=== PATIENT | male | born 1945 | race Caucasian/White ===

== ENCOUNTER 2022-12-26 10:06 | Outpatient (CLI) | payer MEDICARE, SELFPAY ==
--- NOTE | 2022-12-26 10:51 | ECG_ITS ---
Measurements Intervals [place] Rate: 75 P: 29 KS: 244 QRS: 18 QRSD: 99 T: 6 QT: 369 QTc: 413 Interpretive Statements SINUS RHYTHM WITH FIRST DEGREE AV BLOCK COMPARED TO ECG 01/27/2019 10:44:03 NO SIGNIFICANT CHANGES Electronically Signed On 12-26-2022 16:26:02 CDT by Meredith Roberson M.D.
[2022-12-26 11:19] LABS: Basophils Absolute Auto 0.1 K/mm3 (0.0-0.1); Basophils Percent Auto 0.9 % (0.2-1.2); Eosinophils Absolute Auto 0.4 K/mm3 (0-0.3); Eosinophils Percent Auto 5.2 % (0-4.4); Hematocrit 43.7 % (42.0-52.0); Hemoglobin 14.7 g/dL (14.0-18.0); Immature Granulocyte Absolute 0.06 K/mm3 (0.00-0.031); Immature Granulocyte Percent A 0.8 % (0-0.5); Lymphocytes Absolute Auto 3.15 K/mm3 (0.9-3.2); Lymphocytes Percent Auto 40.8 % (18.3-44.2); Mean Corpuscular HGB Conc 33.6 g/dl (32-36); Mean Corpuscular Volume 92.2 fl (80-100); Mean Platelet Volume 10.2 fl (7.4-10.4); Monocytes Absolute Auto 0.8 K/mm3 (0.1-0.6); Monocytes Percent Auto 10.9 % (2.6-8.5); Neutrophils Absolute Auto 3.2 K/mm3 (1.3-6.7); Neutrophils Percent Auto 41.4 % (45.5-73.1); Platelet Count Result 231 k/mm3 (150-375); Red Blood Count 4.74 M/mm3 (4.6-6.20); Red Cell Distribution Width 13.7 % (11.5-14.5); White Blood Count 7.7 K/mm3 (4.5-10.0)
[2022-12-26 11:35] LABS: Albumin Level 4.6 g/dL (3.5-5.1); Estimated Glomerular Filt Rate > 60; Glucose 104 mg/dL (65-110)
[2022-12-26 11:38] LABS: Urine Cotinine NEGATIVE
[2022-12-26 12:08] LABS: Hemoglobin A1C 5.4 % (<5.7)
== END 2022-12-26 10:07 | disposition home or self-care (01) ==
LOC: ANHSURGERY 10:11
PROVIDERS: PCP Internal Medicine; Visit Provider Orthopaedic Surgery
DX: M17.11 Unilateral primary osteoarthritis, right knee (principal); Z01.818 Encounter for other preprocedural examination
CPT/HCPCS: 80307; 82040; 82565; 82947; 83036; 85025; 86850; 86900; 86901; 87081; 93005

== ENCOUNTER 2023-01-04 01:46 | Day surgery (SDC) | payer MEDICARE, SELFPAY ==
--- NOTE | 2022-12-26 09:41 | PC.NURSE ---
PRE-OP INSTRUCTIONS, PLEASE READ CAREFULLY Report to the Outpatient Waiting Room, entrance under the green pavilion located off [facility], at time _1000_ on date _01/04/23_. Planned Procedure Time: _1200_. PACK A SMALL OVERNIGHT BAG AND LEAVE IN THE CAR ALONG WITH YOUR WALKER Time changes happen often and if your time is changed the preop area will call you the afternoon before. - You and your visitor will be asked to self-screen and do not enter if you have any COVID symptoms. - A mask is optional within the hospital at this time. -VISITING HOURS 8AM-8PM Patients may have clear liquids (water, carbonated beverages, clear teas, apple juice) until 3 hours prior to surgery (0900 AM) with a maximum of 20 ounces. - No food from midnight until time of surgery Take the following medications with a SIP of water the morning of surgery: _HYDRALAZINE, METOPROLOL_ DO NOT STOP ANY OF YOUR OTHER PRESCRIPTION MEDICATIONS PRIOR TO SURGERY ?EXCEPT THE FOLLOWING Medications to discontinue per ANESTHESIA - _ALL VITAMINS AND SUPPLEMENTS, Date to take last dose 12/31/22_ Please no make-up, nail khmer, hairspray, perfume, deodorant, or body powder the day of surgery. No jewelry (including any body piercings) or valuables the day of surgery, leave them at home. Please take a shower or bath the night before, or the morning of, surgery with an antibacterial soap. Wear comfortable, loose fitting clothing. - Jewelry must be removed prior to entering the operating room. Rings and piercings that are not removed may be cut off. - The hospital will not accept responsibility for valuables. - Please leave all valuables, including medications, at home the day of surgery. If you are going home after surgery, a licensed miniature train driver must drive you home. - NO public transportation without another adult if you receive anesthesia. - We recommend that an adult stay with you for 24 hours following discharge. - We also recommend that you do not drive, make important decision, drink alcoholic beverages, or take any drugs that were not prescribed by your health care provider for at least 24 hours after your discharge time. Follow any additional instructions given to you from DR. CLINTON. If you or anyone in your household have experienced Covid symptoms in the past week, please notify your surgeon or the nurse liaison at the phone number below for possible testing. Instructions given to _PATIENT_and asked if any additional questions and then verbalized understanding. Patient advised to call surgeon office or pre surgery nurse liaison [phone] if any additional questions.
[2022-12-26 10:22] VITALS: BP 140/90; PULSE 76; RESP 20; TEMP 36.6; O2SAT 98; BMI 40.1
--- NOTE | 2022-12-26 10:54 | PC.NURSE ---
PT HERE FOR PRE-OP TESTING BMI 40.1, SPOKE WITH ESTHER (NURSE LIAISON) STATES CAN GO AHEAD WITH SURGERY- EXPLAINED TO PT BMI NEEDS TO BE BELOW 40 AND THAT HE WILL BE WEIGHED DOS AND BETWEEN NOW AND DOS TO EAT CLEAN AND STAY AWAY FROM SWEETS/HEAVY EATING AND TO EXERCISE MORE - UNDERSTANDING VOICED.
--- NOTE | 2022-12-29 12:53 | PM.IMHP ---
H&P: HPI History of Present Illness Date/Time: 12/29/22 12:53 Chief Complaint: the patient is a 77-year-old male who sees Dr. Larsen regarding his right knee. The patient has a chronic ongoing history of pain localized to the right knee this is due to advanced primary osteoarthritis. The patient has trouble squatting kneeling going up and down stairs cannot stand or walk for long periods. He has aching pain that limits what he can do he has startup pain rest pain and night pain despite conservative measures including cortisone therapy and anti-inflammatories his symptoms continue. Previous x-rays show advanced primary osteoarthritis in both knees. At this point the patient has discussed further treatment options in detail with Dr. Larsen he would now like to proceed with a right total knee arthroplasty. Review of Systems Review of Systems: Ten point review of systems otherwise negative [facility] Social History Social History Years smoked: 5 Smoking status: Former smoker Tobacco type: cigarettes Second hand tobacco smoke exposure: No Smoking end date: 09/17/70 Additional smoking assessment comments: PT DENIES ALL FORMS OF TOBACCO USE Alcohol intake: current Drinks per week: 4 Substance use: never Substance use type: does not use Living arrangements: with friend(s) Additional living arrangements comments: LIVES WITH SIGNIFICANT OTHER Spiritual care concerns: No Meds Home Medications and Allergies Home Medications Medication Instructions Recorded Confirmed Type Larginine 500 mg QAM 12/26/22 History amlodipine 5 mg tablet 5 mg HS 12/26/22 12/26/22 History ascorbic acid (vitamin C) 1,000 mg 1 g PO QAM 12/26/22 12/26/22 History tablet (Vitamin C) aspirin 81 mg tablet,delayed 81 mg PO QAM 12/26/22 12/26/22 History release atorvastatin 10 mg tablet 10 mg HS 12/26/22 12/26/22 History celecoxib 200 mg capsule 200 mg QAM 12/26/22 12/26/22 History cholecalciferol (vitamin D3) 25 25 mcg PO QAM 12/26/22 12/26/22 History mcg (1,000 unit) capsule coenzyme Q10 100 mg capsule 100 mg PO QAM 12/26/22 12/26/22 History (CoQ-10) ferrous sulfate 27 mg iron tablet 27 mg PO QAM 12/26/22 12/26/22 History hydralazine 25 mg tablet 50 mg BID 12/26/22 12/26/22 History metoprolol tartrate 25 mg tablet 25 mg BID 12/26/22 12/26/22 History ckwarkztukwl-cyr-vlygx acid-vit 1 tablet PO QAM 12/26/22 12/26/22 History K-lycop 400 mcg-20 mcg-370 mcg tablet (Men's 50 Plus Multivitamin) nifedipine 60 mg tablet,extended 60 mg PO HS 12/26/22 12/26/22 History release vitamin B complex 1 cap PO QAM 12/26/22 12/26/22 History vitamin E 400 unit tablet 400 unit QA 12/26/22 12/26/22 History Allergies Allergy/AdvReac Type Severity Reaction Status Date / Time No Known Allergies Allergy Unverified 12/26/22 10:24 Exam Narrative: on exam the patient is noted be 6 ft tall 285 lb with a BMI 38.7. Patient is noted be a well-developed moderately obese male no acute distress alert oriented x3. Normal mood and affect. Hearing and vision intact. Respiratory is good no distress. Pulse regular rate rhythm. Abdomen benign. Extremities show the patient's right knee to be painful with manipulation and range of motion he has mild varus deformity tenderness on the medial joint line with subpatellar crepitation mild effusion swelling knee joint is otherwise stable strength is 5 5. Range of motion is 5-110 degrees. Walks an antalgic gait because of bilateral knee pain neurovascular is intact skin is intact central nervous system within normal limits. Assessment and Plan Assessment and plan (1) Primary osteoarthritis of right knee: Code(s): M17.11 - Unilateral primary osteoarthritis, right knee Status: Acute Plan by previous x-ray and exam the patient is noted to have advanced primary osteoarthritis right knee joint. The patient has discussed risk
[2023-01-04] VITALS (12 sets, daily range): BP systolic 109–145; BP diastolic 60–85; PULSE 70–87; RESP 12–18; TEMP 36.2–37.8; O2SAT 95–100
--- NOTE | ~2023-01-04 | XR_ITS ---
EXAMINATION: [id number] DATE: 01/04/2023 14:38 CDT INDICATION: Right total knee arthroplasty TECHNIQUE: 2 views right knee FINDINGS: There is a right total knee arthroplasty in expected position. Subcutaneous gas with fluid and air in the joint and overlying skin mesha are consistent with recent surgery. No evidence of p eriprosthetic fracture. IMPRESSION: 1. Recent right total knee arthroplasty. Reviewed, dictated and finalized at location A.
[2023-01-04] MEDS: LACTATED RINGERS 1,000 ML 30 ML IV CONT ×2 (10:45→14:06)
[2023-01-04] MEDS: TRANEXAMIC ACID 1,000MG/ISO100 1,000 MG/100 ML BAG 200 MG IVPB (10:45)
[2023-01-04] MEDS: ACETAMINOPHEN 500 MG TABLET 1000 MG PO (10:45)
--- NOTE | 2023-01-04 10:47 | WPDANESEPPF ---
Anes - Initial Pre Proc Eval Procedure: Operation Date: 01/04/23 12:00 Proposed Procedures p Right Total Knee Arthroplasty - Fred Larsen MD Date/Time: 01/04/23 10:47 Surgeon: Fred Larsen MD Pre Op Diagnosis: O.A. Right Knee Patient Data Age: 77 Gender: M Height: 1.8 m Weight: 130.5 kg Last Vital Signs Temp 36.6 C 12/26/22 10:22 Pulse 76 12/26/22 10:22 Resp 20 12/26/22 10:22 BP 140/90 12/26/22 10:22 Pulse Ox 98 12/26/22 10:22 O2 Del Method Room Air 12/26/22 10:22 Allergies Allergy/AdvReac Type Severity Reaction Status Date / Time No Known Allergies Allergy Unverified 01/04/23 10:50 Home Medications Medication Instructions Recorded Confirmed Type Larginine 500 mg QAM 12/26/22 History amlodipine 5 mg tablet 5 mg HS 12/26/22 01/04/23 History ascorbic acid (vitamin C) 1,000 mg 1 g PO QAM 12/26/22 12/26/22 History tablet (Vitamin C) aspirin 81 mg tablet,delayed 81 mg PO QAM 12/26/22 12/26/22 History release atorvastatin 10 mg tablet 10 mg HS 12/26/22 01/04/23 History celecoxib 200 mg capsule 200 mg QAM 12/26/22 12/26/22 History cholecalciferol (vitamin D3) 25 25 mcg PO QAM 12/26/22 12/26/22 History mcg (1,000 unit) capsule coenzyme Q10 100 mg capsule 100 mg PO QAM 12/26/22 12/26/22 History (CoQ-10) ferrous sulfate 27 mg iron tablet 27 mg PO QAM 12/26/22 12/26/22 History hydralazine 25 mg tablet 50 mg BID 12/26/22 01/04/23 History metoprolol tartrate 25 mg tablet 25 mg BID 12/26/22 01/04/23 History isqutdewcabs-fpc-yxbbs acid-vit 1 tablet PO QAM 12/26/22 12/26/22 History K-lycop 400 mcg-20 mcg-370 mcg tablet (Men's 50 Plus Multivitamin) nifedipine 60 mg tablet,extended 60 mg PO HS 12/26/22 01/04/23 History release vitamin B complex 1 cap PO QAM 12/26/22 12/26/22 History vitamin E 400 unit tablet 400 unit QAM 12/26/22 12/26/22 History Patient hx anesthesia problems: none Family hx anesthesia problems: none Results Review: All pre-operative results and documents have been reviewed as part of the pre-operative evaluation. [facility] Past Medical History Medical History (Updated 01/04/23 @ 10:48 by Carl Palma DO) Anemia Hard of hearing Hyperlipidemia Hypertension Social History Social History Years smoked: 5 Smoking status: Former smoker Tobacco type: cigarettes Second hand tobacco smoke exposure: No Smoking end date: 09/17/70 Additional smoking assessment comments: PT DENIES ALL FORMS OF TOBACCO USE Alcohol intake: current Drinks per week: 4 Substance use: never Substance use type: does not use Living arrangements: with friend(s) Additional living arrangements comments: LIVES WITH SIGNIFICANT OTHER Spiritual care concerns: No Anes - Eval Final PreProcedure Day of Procedure 01/04/23 10:47 Patient weight: morbidly obese Heart: regular rate and rhythm Lungs: clear to auscultation Airway: Mallampati scale class II Neurological: alert and oriented Last oral intake: >/= 8 hours ASA classification: III Emergent: no Anesthetic plan: proceed Anesthesia type and monitoring: general LMA and standard monitoring Results Review: All pre-operative results and documents have been reviewed as part of the pre-operative evaluation. Informed Consent: The patient's anesthetic plan and its attendant risks and benefits were discussed with the patient/family/POA. Questions were solicited and answers provided to the satisfaction of the patient/family/POA.
--- NOTE | 2023-01-04 10:48 | WPDANESPNB ---
Anes - Peripheral Nerve Block Date/Time: 01/04/23 10:48 I have discussed with the patient/family/POA the placement of a peripheral nerve block for post-operative pain management, including associated risks, benefits, complications, and side effects. Alternative methods of post-operative analgesia were detailed. Questions were solicited and answers provided to the satisfaction of the patient/family/POA. Time-Out: A pre-procedural Time-Out was completed immediately before starting the procedure and confirmed: Patient Identification, Site, Procedure, Patient Position and the Availability of Requisite Equipment. Clinical Indications: Acute post-operative pain management requested by the operative surgeon. Nerve Block Insertion Note Anes-nerve block: adductor canal right Patient position: supine Skin prep: chlorhexidine Needle: 22 gauge, stimulating, insulated echogenic needle. Needle length: 80 mm Technique: ultrasound Injectate: bupivacaine 0.5% with epi 5 mcg/ml (30cc - no epi) Observations: tolerated well Complications: none Procedure start time:: 1144 Procedure end time:: 114
--- NOTE | 2023-01-04 11:36 | WPDHPUPDATE1 ---
History and Physical Update Update Date/Time: 01/04/23 11:36 History and Physical has been reviewed, including an updated exam of the patient. There are NO changes in the patient's condition. Risks, benefits, and alternatives have been discussed and questions answered. Patient agrees to proceed with procedure.
[2023-01-04] MEDS: ceFAZolin 3 GM/D5W 100 ML 100 ML IVPB (12:00)
--- NOTE | 2023-01-04 13:30 | P.OP_ITS ---
Procedure Note - Detailed Date of Procedure 01/04/23 Pre-op Diagnosis O.A. Right Knee Post-op Diagnosis Same Procedure Performed Right total knee arthroplasty Surgeon Fred Larsen MD Environmental Compliance Specialist Hayden Rasheed Anesthesia General Description of Procedure The patient was brought to the operating room #7. General anesthetic was administered. Placed on the operating table and sterilely prepped and draped in usual manner. A longitudinal incision was made. Tourniquet inflated to 300 mmHg for a total of 41 minutes. Dissection carried down to the fascia. Medial parapatellar incision was made and the patella subluxated laterally. Patella cut from 28 to 18 mm and sized for a 37 mm button. The tibia cut perpendicular to the long axis and femur cut in 5 degrees of valgus, a 72.5 femur trialed. 79 tibia was felt to fit the best. The soft tissue balanced, hemostasis obtained. All [address], 79 tibia, 72.5 femur, 37 mm patella, and 11AS mm poly. Motion was 0-125 degrees with good stablility and flexion and extension. The wound was closed with #2 vicryl, 2-0 Vicryl and mesha. Estimated Blood Loss 200 Drains No Packing No Pathology None sent Complications No immediate complications Condition Stable Disposition PACU
[2023-01-04] MEDS: fentaNYL CITRATE INJ (*CRX) 100 MCG/2 ML VIAL 25 MCG IV PUSH ×4 (14:25→14:52)
--- NOTE | 2023-01-04 14:35 | PM.OP ---
Procedure Note - Brief Procedure Note - Brief Date of procedure: 01/04/23 Preop diagnosis-advanced primary osteoarthritis Right Knee Postop Diagnosis-same, status post right total knee arthroplasty Procedure performed: Right total knee arthroplasty Surgeon: Surgeon-Fred Rasheed PA-C Description of procedure: Patient was taken the operating room on 01/04 23 for right total knee arthroplasty. I entered the room at 12:05 p.m. at that time I then full position the patient on the operating table placed a tourniquet, assisted with a sterile prep and drape and then Dr. Larsen at the room to proceed with the surgical procedure. Throughout the procedure I assisted with wound retraction, hemostasis with suction and cautery, positioning of the leg, placement of the implant and excess cement removal once the cement was hardened. Once the surgical procedure was complete, I then proceeded with irrigation of the wound followed by placement of Surgicel powder, I then began with closure of the deep capsule of the right knee joint with 2. Vicryl followed by 2. Quill. I then irrigated the wound once again major further hemostasis was obtained. I then proceeded with closure of the fatty and skin layers with 2-0 Vicryl, 0 Quill, and surgical mesha. I then applied a sterile dressing was 0 form gauze 4 x 4 gauze soft roll padding and a 6 in Harjeet from the toes to the thigh. Patient tolerated procedure well. Total blood loss was approximately 300 cc. And then assisted with transfer the patient from the operating table to the stretcher the patient was to be discharged to recovery room he was in good condition without operative complications. Patient is expected to be discharged tomorrow if in stable condition. I exited the room at 2:10 p.m.
[2023-01-04] MEDS: SODIUM CHLORIDE 0.9% IV 1,000 ML 125 ML IV CONT (15:35)
[2023-01-04] MEDS: HYDROcodone/acetaminophen (*CRX) 7.5-325 MG TABLET 1 TAB PO (15:35)
--- NOTE | 2023-01-04 15:40 | ADMGEN ---
This patient, Savage Church, was admitted to 2 Medical Room 260-01. Patient/family oriented to hospital policies and general routines including ID bracelet, bed and alarms, visiting hours, pain management, procedures, bathroom and other care routines, personal items, smoking policy, room service/diet, and visiting hours. Information on how to activate the Rapid Response Team has been discussed. Patient/Family are encouraged to report perceived risks to care and to ask questions if they do not understand what they are told or what they should do.
[2023-01-04] MEDS: SENNA/DOCUSATE SODIUM TABLET 2 TAB PO (17:24)
[2023-01-04] MEDS: CELECOXIB 200 MG CAPSULE PO (17:24)
[2023-01-04] MEDS: ceFAZolin 2 GM/D5W 50 ML 2 GM/50 ML BAG IVPB (20:09)
[2023-01-04] MEDS: HYDROcodone/acetaminophen (*CRX) 5-325 MG TABLET 1 TAB PO (20:09)
[2023-01-04] MEDS: NIFEdipine 30 MG TAB.ER.24 60 MG PO (20:09)
[2023-01-04] MEDS: RIVAROXABAN 10 MG TABLET PO (20:10)
[2023-01-04] MEDS: amLODIPine BESYLATE 5 MG TABLET PO (20:10)
--- NOTE | 2023-01-04 20:39 | PM.IMCN ---
Assessment and Plan Assessment and plan (1) S/P total knee arthroplasty: Code(s): Z96.659 - Presence of unspecified artificial knee joint Status: Acute Assessment and Plan: Postop care per orthopedic physician DVT prophylaxis per orthopedic physician the patient currently has SCDs and is on an aspirin. He is also on Xarelto. Pain management per orthopedic physician. The patient is on [place] and tramadol (2) Hyperlipidemia: Code(s): E78.5 - Hyperlipidemia, unspecified Status: Acute Assessment and Plan: Continue with heart healthy diet. Continue with atorvastatin (3) Hypertension: Code(s): I10 - Essential (primary) hypertension Status: Acute Assessment and Plan: Continue with Norvasc, hydralazine, and Procardia Hold blood pressure medication if map is less than 65. HPI Data of Consult Consult date: 01/05/23 Requesting Physician: Fred Larsen MD Primary Care Provider: Yoshi Garcia, Consult Narrative Narrative: Savage Church is a 77 year old male who was seen by Dr. Larsen regarding his right knee. The patient has been having chronic ongoing history of pain localized to the right knee due to advanced primary osteoarthritis. The patient has been having difficulty with squatting and kneeling down. He also has difficulty walking up and down the steps. The patient cannot longer stand for long periods of time. His a he pain limits his ability to perform ADLs. He has start-up pain, rest pain and night pain despite conservative measures including cortisone therapy and anti-inflammatories. His severe symptoms continue even with the conservative measures. Previous x-rays show advanced primary osteoarthritis in both knees. The patient underwent a right total knee arthroplasty today. Please see operative report per Dr. Larsen. The patient was admitted per orthopedic specialty and the hospitalist group was asked to consult on the date of service of 01/04/2023. Review of Systems Review of Systems: All systems reviewed & are unremarkable except as noted in HPI and below Constitutional: Constitutional: Reports as per HPI and Reports no additional constitutional complaints Eyes: Eyes: Reports as per HPI and Reports no additional eye complaints ENT: Reports system reviewed and no additional complaints, except as documented and Reports Normal hearing present Cardiovascular: Cardiovascular: Reports no additional cardiovascular complaints Respiratory: Respiratory: Reports no additional respiratory complaints and Reports no additional respiratory complaints Gastrointestinal: Gastrointestinal: Reports as per HPI and Reports no additional gastrointestinal complaints Musculoskeletal: Musculoskeletal: Reports no additional musculoskeletal complaints Integumentary/Breasts: Skin/Breast: Reports system reviewed and no additional complaints, except as docu and Reports as per HPI Neurologic: Reports system reviewed and no additional complaints, except as documented, Reports as per HPI and Reports Normal hearing present Psychiatric: Psychiatric: Reports no additional psychiatric complaints and Reports as per HPI Endocrine: Endocrine: Reports no additional endocrine complaints Hematologic/Lymphatic: Hematologic/Lymphatic: Reports no additional hematologic/lymphatic complaints Allergic/Immunologic: Allergic/Immunologic: Reports no additional allergic/immunologic complaints [facility] Past Medical History Medical History Anemia Hard of hearing Hyperlipidemia Hypertension Surgical History Surgical History (Updated 01/05/23 @ 12:57 by Ruby Ambrocio NP) History of tonsillectomy and adenoidectomy 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
[2023-01-05 00:48] VITALS: BP 137/83; PULSE 80; RESP 18; TEMP 36.5; O2SAT 98
[2023-01-05] MEDS: ceFAZolin 2 GM/D5W 50 ML 2 GM/50 ML BAG IVPB ×2 (04:13→12:32)
[2023-01-05] MEDS: HYDROcodone/acetaminophen (*CRX) 5-325 MG TABLET 1 TAB PO ×2 (04:15→09:34)
[2023-01-05 04:56] VITALS: BP 124/75; PULSE 70; RESP 18; TEMP 36.4; O2SAT 97
[2023-01-05 06:31] LABS: Basophils Percent Auto 0.2 % (0.2-1.2); Hematocrit 35.5 % (42.0-52.0); Hemoglobin 11.9 g/dL (14.0-18.0); Immature Granulocyte Absolute 0.04 K/mm3 (0.00-0.031); Immature Granulocyte Percent A 0.3 % (0-0.5); Lymphocytes Absolute Auto 1.09 K/mm3 (0.9-3.2); Lymphocytes Percent Auto 9.2 % (18.3-44.2); Mean Corpuscular HGB Conc 33.5 g/dl (32-36); Mean Corpuscular Hemoglobin 30.4 pg (26-34); Mean Corpuscular Volume 90.8 fl (80-100); Mean Platelet Volume 10.2 fl (7.4-10.4); Monocytes Percent Auto 8.6 % (2.6-8.5); Neutrophils Absolute Auto 9.7 K/mm3 (1.3-6.7); Neutrophils Percent Auto 81.7 % (45.5-73.1); Platelet Count Result 191 k/mm3 (150-375); Red Blood Count 3.91 M/mm3 (4.6-6.20); Red Cell Distribution Width 13.4 % (11.5-14.5); White Blood Count 11.8 K/mm3 (4.5-10.0)
[2023-01-05 06:38] LABS: Anion Gap 3 mmol/L (8-16); Blood Urea Nitrogen 14 mg/dL (9-20); Carbon Dioxide 29 mmol/L (22-30); Chloride 102 mmol/L (98-107); Estimated CRCL calculation 76 ml/min; Estimated Glomerular Filt Rate > 60; Glucose 127 mg/dL (65-110); Potassium 4.3 mmol/L (3.4-5.0); Sodium 134 mmol/L (137-145)
[2023-01-05] MEDS: CELECOXIB 200 MG CAPSULE PO (09:30)
[2023-01-05] MEDS: ASPIRIN 81 MG ENTERIC TABLET PO (09:31)
[2023-01-05] MEDS: SENNA/DOCUSATE SODIUM TABLET 2 TAB PO (09:32)
[2023-01-05] MEDS: CHOLECALCIFEROL 1,000 UNITS TABLET 1000 UNITS PO (09:32)
[2023-01-05] MEDS: FERROUS SULFATE 324 MG TABLET PO (09:32)
[2023-01-05] MEDS: polyethylene glycoL 3350 17 GM POWD.PACK PO (09:34)
[2023-01-05] MEDS: VITAMIN B COMPLEX CAPSULE 1 CAP PO (09:34)
[2023-01-05 10:15] VITALS: BP 125/72; PULSE 98; RESP 18; TEMP 36.4; O2SAT 98
--- NOTE | 2023-01-05 11:30 | PM.IMPN ---
Progress Note: A&P Assessment and Plan (1) Primary osteoarthritis of right knee: Code(s): M17.11 - Unilateral primary osteoarthritis, right knee Status: Acute Assessment and Plan: POD 1 Post op care per ortho Pain medications on board PT/OT DVT per ortho (2) Hypertension: Code(s): I10 - Essential (primary) hypertension Status: Acute Assessment and Plan: BP 125/72 Continue home medication trend BP adjust medication (3) Anemia: Code(s): D64.9 - Anemia, unspecified Status: Acute Assessment and Plan: 11.9/35.5 Stable at this time trend as indicated (4) Hyperlipidemia: Code(s): E78.5 - Hyperlipidemia, unspecified Status: Acute Assessment and Plan: Continue statin drug as prescribed Time Spent With Patient Time: 48 minutes Time with patient: Greater than 35 minutes Subjective Date/time seen: 01/05/23 1130 Interval history: Patient was sitting in the chair. Patient states that he is doing well and he should be going home today. His right knee has mesha in it is sort of oozing blood. Blood pressure and labs and vital signs were all reviewed with the patient in detail. Patient denies any current chest pain, shortness a breath, nausea, vomiting, diarrhea constipation. Patient did state that he was having some pain did talked about about pain medication etiquette and about taking medications when in pain. Patient stable for discharge at this time. Review of Systems Review of Systems: All systems reviewed & are unremarkable except as noted in HPI and below Exam Narrative: General: well-nourished, well-appearing 77-year-old male, sitting up in chair, uncomfortable, NARD Neuro: awake, alert and oriented x4, speech clear, no focal neuro deficits noted HEENMT: normocephalic, atraumatic, EOMI, sclerae anicteric, moist oral mucosa Respiratory: Clear to auscultation bilaterally without crackles, rhonchi or wheezes, nonlabored breathing Cardio: regular rate, regular rhythm with S1-S2 Abdomen: nondistended, normoactive bowel sounds, soft, nontender to palpation Extremities: no edema, erythema, or tenderness to palpation, DP pulses 2+ bilaterally, right knee has mesha slight bloody drainage noted Skin: no rashes or lesions, warm and dry Psych: appropriate mood and affect, judgment and insight intact Objective Data Vital Signs Vital Signs: Vital Signs - 24 hr 01/04/23 10:52 01/04/23 14:06 01/04/23 14:22 Temperature 97.2 F L 100.1 F H Pulse Rate 78 87 86 Respiratory Rate 16 18 14 Blood Pressure 123/78 127/84 119/69 Pulse Oximetry 98 100 97 Oxygen Delivery Room Air Simple Face Mask Simple Face Mask Oxygen Flow Rate 8 8 01/04/23 14:35 01/04/23 14:50 01/04/23 15:05 Temperature Pulse Rate 82 79 79 Respiratory Rate 12 12 16 Blood Pressure 110/67 115/66 113/72 Pulse Oximetry 100 100 100 Oxygen Delivery Nasal Cannula Nasal Cannula Nasal Cannula Oxygen Flow Rate 2 2 2 01/04/23 15:35 01/04/23 15:50 01/04/23 16:20 Temperature 97.6 F 97.3 F L 97.4 F L Pulse Rate 76 71 70 Respiratory Rate 16 16 18 Blood Pressure 109/62 110/68 118/68 Pulse Oximetry 99 96 97 Oxygen Delivery Oxygen Flow Rate 01/04/23 17:20 01/04/23 20:03 01/04/23 20:00 Temperature 97.3 F L 97.3 F L Pulse Rate 71 78 78 Respiratory Rate 18 18 18 Blood Pressure 116/60 145/85 H Pulse Oximetry 95 97 97 Oxygen Delivery Room Air Oxygen Flow Rate 01/05/23 00:48 01/05/23 04:56 Temperature 97.7 F 97.5 F L Pulse Rate 80 70 Respiratory Rate 18 18 Blood Pressure 137/83 124/75 Pulse Oximetry 98 97 Oxygen Delivery Oxygen Flow Rate Intake/Output Intake/Output: Intake & Output 01/02/23 01/03/23 01/04/23 01/05/23 23:59 23:59 23:59 23:59 Intake Total 590 Output Total 500 Balance 590 -500 Meds/Results Medications: Active Medications Generic Name Dose
--- NOTE | 2023-01-05 18:35 | PM.DS ---
DS: Admitting Diagnosis Discharge Date 01/05/23 Admitting Diagnosis admitting diagnosis severe primary osteoarthritis right knee joint discharge diagnosis severe primary osteoarthritis right knee joint status post right total knee arthroplasty DS: Summary Hospital Course Hospital Course: patient was a 77-year-old male admitted for right total knee arthroplasty overnight postop. Postop day 1 the patient was tolerating physical therapy well and ambulating independently with a walker no postoperative complications noted pain was well controlled even alert oriented x3. Normal mood and affect. Vital signs are stable afebrile neurovascular is intact wound dressing clean and dry caps benign. Patient was discharged postop day 1 to home in stable condition. The patient voiced understanding and agrees with the above plan. Time Spent with Patient Time attestation: Total time spent providing and/or coordinating discharge services: Exam Narrative: Vital signs stable alert oriented x3. Normal mood and affect. Calves benign neurovascular is intact wound dressing clean and dry up ambulating independently with a walker tolerated physical therapy well postop day 1 DS: Data Data Completed and Pending Labs on day of discharge: Labs from last 24 hours 01/05/23 01/05/23 06:10 06:10 WBC 11.8 H RBC 3.91 L Hgb 11.9 L Hct 35.5 L MCV 90.8 MCH 30.4 MCHC 33.5 RDW 13.4 Plt Count 191 MPV 10.2 Immature Gran % (Auto) 0.3 Neut % (Auto) 81.7 H Lymph % (Auto) 9.2 L [place] % (Auto) 8.6 H Eos % (Auto) 0.0 Baso % (Auto) 0.2 Lymph # (Auto) 1.09 [place] # (Auto) 1.0 H Eos # (Auto) 0.0 Baso # (Auto) 0.0 Abs Immat Gran (auto) 0.04 H Absolute Neuts (auto) 9.7 H Absolute Nucleated RBC 0.0 Nucleated RBC % 0.0 Sodium 134 L Potassium 4.3 Chloride 102 Carbon Dioxide 29 Anion Gap 3 L BUN 14 Creatinine 1.00 Estim Creat Clear Calc 76 Estimated GFR > 60 Glucose 127 H Calcium 9.0 Procedures/Treatments: right total knee arthroplasty Discharge Plan Discharge Patient Disposition: Home, Self-Care Discharge Instructions: Fred Dunn M.D [facility], [address] [address] POST-OPERATIVE DISCHARGE INSTRUCTIONS TOTAL KNEE ARTHROPLASTY 1. When resting, lie on back with leg elevated above hear to minimize swelling. Significant swelling could indicate a blood clot and if this occurs call the office (or go to the ER) to have a venous ultrasound. 2. Do exercise 5 times a day. 3. Do not sit with leg down except for meals. 4. Wound Care: Nursing will give additional dressings at discharge. Patient to change dressing at home 1 week from surgery, then maintain until seen in office. 5. May shower with dressing in place. 6. Follow weight bearing status instructions. IMPORTANT: Remember not to sit in the chair for more than 30 minutes at a time. As a rule, during the first 14 days after surgery, only sit in the chair to work on the chair knee bending stretch exercise, for meals or for use of the restroom. Sitting in the chair promotes significant swelling in the knee and leg which will make the knee stiff and more painful and which simulates having a blood clot in the veins of the leg. If this type of significant diffuse swelling occurs, an ultrasound at the hospital will be necessary to rule out a blood clot. Be up walking around with the walker for a few minutes every hour while awake and then rest laying on your back on the couch or in bed with your leg elevated on cushions or pillows. Do not rest in the chair. Patient Instructions: Rivaroxaban (By mouth) Stand Alone Forms: General Discharge Instructions, Avoid NSAIDs Follow-up/Referrals: Fred Larsen MD [Physician] - Discharge Medications: New hydrocodone-acetaminophen 7.5-325 mg tablet 1 tablet PO Q4H PRN (Reason: p
== END 2023-01-05 13:55 | disposition home or self-care (01) ==
LOC: ANHSURGERY 13:42 → ANH2MED 15:13
PROVIDERS: PCP Internal Medicine; Visit Provider Orthopaedic Surgery
PROC: (CPT 27447; principal; 2023-01-04 12:00)
DX: M17.11 Unilateral primary osteoarthritis, right knee (principal); G89.18 Other acute postprocedural pain; I10 Essential (primary) hypertension; E78.5 Hyperlipidemia, unspecified; D64.9 Anemia, unspecified; Z87.891 Personal history of nicotine dependence; E66.01 Morbid (severe) obesity due to excess calories; Z68.39 Body mass index [BMI] 39.0-39.9, adult; Z79.82 Long term (current) use of aspirin
CPT/HCPCS: 27447; 64447; 36415; 73560; 80048; 80307; 82040; 82565; 82947; 83036; 85025; 86850; 86900; 86901; 87081; 93005; 97110; 97161; 97165; 97530; A9270; C1713; C1776; J0690; J1100; J1170; J1885; J2250; J2270; J2370; J2405; J2704; J2795; J3010; J7030; J7120

== ENCOUNTER 2023-01-18 13:33 | Outpatient (CLI) | payer MEDICARE, SELFPAY ==
--- NOTE | ~2023-01-18 | US_ITS ---
EXAMINATION: US venous doppler LE RT DATE: 01/18/2023 14:14 INDICATION: EDEMA . TECHNIQUE: Grayscale images without and with compression and Doppler images of the right lower extrem ity veins were obtained. COMPARISON: None FINDINGS: The right common femoral vein, profunda (deep) femoral vein, femoral vein, popliteal vein, peroneal v ein, posterior tibial veins, gastrocnemius vein, and greater saphenous vein are patent. IMPRESSION: 1. Patent right lower extremity veins. No evidence of deep venous thrombosis. Reviewed, dictated and finalized at location K.
== END 2023-01-18 13:34 | disposition home or self-care (01) ==
PROVIDERS: PCP Internal Medicine; Visit Provider Internal Medicine
DX: R60.0 Localized edema (principal)
CPT/HCPCS: 93971

== ENCOUNTER 2024-12-08 11:47 | Outpatient (CLI) | payer MEDICARE, SELFPAY ==
--- NOTE | 2024-12-08 12:39 | ECG_ITS ---
Test Date: 2024-12-08 12:57:36 Measurements Intervals [place] Rate: 68 P: 9 GA: 272 QRS: 20 QRSD: 100 T: 16 QT: 403 QTc: 430 Interpretive Statements SINUS RHYTHM WITH FIRST DEGREE AV BLOCK No previous ECG available for comparison Electronically Signed On 12-09-2024 15:32:05 CDT by Meredith Roberson M.D.
[2024-12-08 13:14] LABS: Basophils Absolute Auto 0.1 K/mm3 (0.0-0.1); Basophils Percent Auto 0.8 % (0.2-1.2); Eosinophils Percent Auto 13.4 % (0-4.4); Hematocrit 42.7 % (42.0-52.0); Hemoglobin 13.8 g/dL (14.0-18.0); Immature Granulocyte Absolute 0.02 K/mm3 (0.00-0.031); Immature Granulocyte Percent A 0.3 % (0-0.5); Lymphocytes Absolute Auto 2.55 K/mm3 (0.9-3.2); Lymphocytes Percent Auto 33.6 % (18.3-44.2); Mean Corpuscular HGB Conc 32.3 g/dl (32-36); Mean Corpuscular Hemoglobin 29.4 pg (26-34); Mean Platelet Volume 10.2 fl (7.4-10.4); Monocytes Absolute Auto 0.8 K/mm3 (0.1-0.6); Neutrophils Absolute Auto 3.2 K/mm3 (1.3-6.7); Neutrophils Percent Auto 41.9 % (45.5-73.1); Platelet Count Result 250 k/mm3 (150-375); Red Blood Count 4.69 M/mm3 (4.6-6.20); Red Cell Distribution Width 14.1 % (11.5-14.5); White Blood Count 7.6 K/mm3 (4.5-10.0)
[2024-12-08 13:25] LABS: Albumin Level 4.4 g/dL (3.5-5.1); Estimated Glomerular Filt Rate > 60; Glucose 93 mg/dL (65-110)
[2024-12-08 13:26] LABS: Hemoglobin A1C 5.2 % (<5.7)
[2024-12-08 13:27] LABS: Urine Cotinine NEGATIVE
--- OUTSIDE RECORDS SUMMARY | 2024-12-08 13:48 | XMS_ITS | Data Portability ---
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 Right is worse than left he is ready to have surgery. He has tried to lose weight but has not been able to do his BMI is 38+. He has pain with any activity walks with an antalgic gait has varus deformity has had multiple shots medicine therapy cortisone exercise time and has failed conservative treatment. Clearly he would benefit from surgical intervention consisting of knee replacement surgery we will begin with the right knee. I answered all of his questions, Discussed risks benefits limitations and alternatives again. 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 His incision looks good he has got mild swelling but that he has got a cap was released soft. I have offered him a duplex scan he declined I told him he gets more swelling to call me overall it looks like he is doing great he has got motion from 0-90 5+ without any problem. I will see him back after he begins therapy in about 3-4 weeks for postop x-rays discussed. Not available 01/16/2023 14:37:44 01/18/2023 01/18/2023 Will get a venous duplex just to be safe see me in 2 months otherwise continue current therapy Not available 01/20/2023 17:45:55 02/13/2023 02/13/2023 Patient returns status post total knee arthroplasty right. The pain for the most part is gone he has had a nice result his x-rays look great he has got motion 0-130 degrees in walking without support. I think he can be dismissed follow up 1 year for x-rays if he has any changes or problems he will call discussed. [email or web address] Not available 02/13/2023 14:36:46 Plan of Treatment Reminders Order Date Submit Date Provider Last Modified By Organization Details Last Modified Time Details Appointments None recorded. Lab None recorded. Referral None recorded. Procedures None recorded. Surgeries None recorded. Imaging XR, knee 2022 023 [email or web address] [facility] [place], [address], [place], [address], 14:55:34 US, duplex, venous, lower extremity - STAT HOLD AND CALL WITH RESULTS 2022 023 [facility], [address], [place], [address], 15:44:22 Medication Orders None recorded. Patient TargetsNo targets recorded. Patient InstructionsNo instructions recorded. Reason for Referral None Reported. Results Created Date Observation Date Name Description Value Unit Range Abnormal Flag Note LastModifiedBy Organization Detail LastModifiedTime 09/21/1909/21/2022 TSH thyroid-stim ulating hormone 4.050 uIU/m L 0.465- 4.680 Not Available [facility] (Lab) [address] [place], [address], 09/21/2022 20:41:13 09/21/19 23 09/21/2022 T3 FREE free T3 3.8 pg/mL 2.77-5 .27 Not Available [facility] (Lab) [address] [place], [address], 09/21/2022 20:32:44 09/21/19 23 09/21/2022 T4 FREE free T4 0.81 NG/dL 0.78-2 .19 Not Available [facility] (Lab) [address] [place], [address], 09/21/2022 20:32:42 09/21/19 23 09/21/2022 COMPR EHENS EDUAR METAB OLIC PANEL sodium 139 mmol/ L 137-14 5 Not Available [facility] (Lab) [address] [facility] [place], [address], 09/21/2022 20:32:07 09/21/19 23 09/21/2022 COMPR EHENS EDUAR METAB OLIC PANEL potassium 4.4 mmol/ L 3.5-5. 1 Not Available [facility] (Lab) [address] [facility] [place], [address], 09/21/2022 20:32:07 09/21/19 23 09/21/2022 COMPR EHENS EDUAR METAB OLIC PANEL chloride 101 mmol/ L 98-107 Not Available [facility] (Lab) [address] [place], [address], 09/21/2022 20:32:07 09/21/19 23 09/21/2022 COMPR EHENS EDUAR METAB OLIC PANEL carbon dioxide 28 mmol/ L 22-30 Not Available [facility] (Lab) [address] [place], [address], 09/21/2022 20:32:07 09/21/19 23 09/21/2022 COMPR EHENS EDUAR METAB OLIC PANEL anion gap 14.4 mmol/ L 14-22 Not Available [facility] (Lab) [address] [place], [address], 09/21/2022 20:32:07 09/21/19 23 09/21/2022 COMPR EHENS EDUAR METAB OLIC PANEL glucose 115 mg/dL 70-99 high Not Available [facility] (Lab) [address] [place], [address], 09/21/2022 20:32:07 09/21/19 23 09/21/2022 COMPR EHENS EDUAR METAB OLIC PANEL BUN 17 mg/dL 8-19 Not Available [facility] (Lab) [address] [place], [address], 09/21/2022 20:32:07 09/21/19 23 09/21/2022 COMPR EHENS EDUAR METAB OLIC PANEL creatinine 1.14 mg/dL 0.66-1 .25 Not Available [facility] (Lab) [address] [place], [address], 09/21/2022 20:32:07 09/21/19 23 09/21/2022 COMPR EHENS EDUAR METAB OLIC PANEL GFR >60 Refer ence Range : [place] GFR Healt hy Adult : >60 mL/mi n/1.7 3 m2 Chron ic Kidne y Disea se: 15-60 mL/mi n/1.7 3 m2 Kidne y Failu re: <15/m L/min /1.73 m2 www.n iddk. nih.g ov The MDRD study equat ion has not been valid ated in child edna <18 years of age; pregn ant women ; the elder ly >85 years of age; or in some racia l or ethni c subgr oups, such as [facility] nics. Outsi de the valid ated honorio eters , estim ated GFR is less accur ate, requi ring clini abbi judgm ent on a case- by-ca se basis . Clini abbi inter preta tion for other races and ages must be made by the clini cayden. The MDRD study equat ion has not been valid ated for the evalu ation of serum creat inine relat ed to nutri charleen l statu s or medic ation usage . For perso ns <18 years of age, a pedia tric GFR calcu lator is avail able on the F websi te: https ://ila morales.o rg/pr ofess ional s/kdo qi/gf r_cal culat or Not Available [facility] (Lab) [address] [place], [address], 09/21/2022 20:32:07 09/21/19 23 09/21/2022 COMPR EHENS EDUAR METAB OLIC PANEL alkaline phosphatase 58 U/L 38-126 Not Available [facility] (Lab) [address] [place], [address], 09/21/2022 20:32:07 09/21/19 23 09/21/2022 COMPR EHENS EDUAR METAB OLIC PANEL alanine aminotransfe rase 49 U/L 0-50 Not Available [facility] (Lab) [address] [place], [address], 09/21/2022 20:32:07 09/21/19 23 09/21/2022 COMPR EHENS EDUAR METAB OLIC PANEL aspartate aminotransfe rase 35 U/L 15-46 Not Available [facility] (Lab) [address] [place], [address], 09/21/2022 20:32:07 09/21/19 23 09/21/2022 COMPR EHENS EDUAR METAB OLIC PANEL bilirubin, total 1.50 mg/dL 0.20-1 .30 high Not Available [facility] (Lab) [address] [place], [address], 09/21/2022 20:32:07 09/21/19 23 09/21/2022 COMPR EHENS EDUAR METAB OLIC PANEL calcium 9.8 mg/dL 8.4-10 .2 Not Available [facility] (Lab) [address] [place], [address], 09/21/2022 20:32:07 09/21/19 23 09/21/2022 COMPR EHENS EDUAR METAB OLIC PANEL total protein 7.4 g/dL 6.3-8. 2 Not Available [facility] (Lab) [address] [place], [address], 09/21/2022 20:32:07 09/21/19 23 09/21/2022 COMPR EHENS EDUAR METAB OLIC PANEL albumin 4.6 g/dL 3.0-4. 4 high Not Available [facility] (Lab) [address] [place], [address], 09/21/2022 20:32:07 09/21/19 23 09/21/2022 COMPR EHENS EDUAR METAB OLIC PANEL globulin 2.8 g/dL 2.6-4. 2 Not Available [facility] (Lab) [address] [place], [address], 09/21/2022 20:32:07 09/21/19 23 09/21/2022 COMPR EHENS EDUAR METAB OLIC PANEL A/G ratio 1.6 ratio 1.0-2. 0 Not Available [facility] (Lab) [address] [place], [address], 09/21/2022 20:32:07 09/21/19 23 09/21/2022 LIPID PANEL cholesterol 175 mg/dL 140-19 9 NIH REFUGIO NSUS RECOM MENDA TION FOR KATHLEEN STERO L: ADULT CHILD LOW RISK: <200 <170 BORDE RLINE : <200- 239 ----- HIGH RISK: >240 >200 Not Available [facility] (Lab) [address] [place], [address], 09/21/2022 20:31:56 09/21/19 23 09/21/2022 LIPID PANEL triglyceride s 116 mg/dL 0-150 NIH REFUGIO NSUS REPOR T RECOM MENDA TION FOR TRIGL YCERI ANDERS: ADULT CHILD LOW RISK: <150 ----- BODER LINE: 150-1 99 ----- HIGH RISK: >200 ----- Not Available [facility] (Lab) [address] [place], [address], 09/21/2022 20:31:56 09/21/19 23 09/21/2022 LIPID PANEL HDL cholesterol 70 mg/dL 40- Not Available [facility] (Lab) [address] [place], [address], 09/21/2022 20:31:56 09/21/19 23 09/21/2022 LIPID PANEL LDL cholesterol, calculated 82 mg/dL 0-130 NIH REFUGIO NSUS REPOR T RECOM MENDA TIONS FOR LDL: ADULT CHILD LOW RISK <130 <110 (OPTI MAL LDL) <100 ----- BORDE RLINE : 130-1 59 ----- HIGH RISK: >160 >130 A TRIGL YCERI DE RESUL T >400 INVAL IDATE S THE CALCU LATIO N FOR LDL FRACT IONAT ION - THE LDL RESUL T WILL NOT BE REPOR SHERRY. Not Available [facility] (Lab) [address] [place], [address], 09/21/2022 20:31:56 09/21/19 23 09/21/2022 CBC/C OMPLE TE BLD COUNT W/DIF F white blood cells 7.7 x10'3 /uL 4.2-10 .8 Not Available [facility] (Lab) [address] [place], [address], 09/21/2022 19:14:27 09/21/19 23 09/21/2022 CBC/C OMPLE TE BLD COUNT W/DIF F red blood cells 4.79 x10'6 /uL 4.10-5 .80 Not Available [facility] (Lab) [address] [place], [address], 09/21/2022 19:14:27 09/21/19 23 09/21/2022 CBC/C OMPLE TE BLD COUNT W/DIF F hemoglobin 15.1 g/dL 13.2-1 7.0 Not Available [facility] (Lab) [address] [place], [address], 09/21/2022 19:14:27 09/21/19 23 09/21/2022 CBC/C OMPLE TE BLD COUNT W/DIF F hematocrit 44.3 % 39.3-5 0.0 Not Available [facility] (Lab) [address] [place], [address], 09/21/2022 19:14:27 09/21/19 23 09/21/2022 CBC/C OMPLE TE BLD COUNT W/DIF F mean red cell volume 92.5 fL 80.0-9 7.0 Not Available [facility] (Lab) [address] [place], [address], 09/21/2022 19:14:27 09/21/19 23 09/21/2022 CBC/C OMPLE TE BLD COUNT W/DIF F mean red cell hemoglobin 31.5 pg 27.0-3 3.0 Not Available [facility] (Lab) [address] [place], [address], 09/21/2022 19:14:27 09/21/19 23 09/21/2022 CBC/C OMPLE TE BLD COUNT W/DIF F mean RBC HGB concentratio n 34.1 g/dL 31.0-3 6.0 Not Available [facility] (Lab) [address] [place], [address], 09/21/2022 19:14:27 09/21/19 23 09/21/2022 CBC/C OMPLE TE BLD COUNT W/DIF F red cell distribution width 13.2 % 11.8-1 5.5 Not Available [facility] (Lab) [address] [place], [address], 09/21/2022 19:14:27 09/21/19 23 09/21/2022 CBC/C OMPLE TE BLD COUNT W/DIF F platelets 247 x10'3 /uL 150-40 0 Not Available [facility] (Lab) [address] [place], [address], 09/21/2022 19:14:27 09/21/19 23 09/21/2022 CBC/C OMPLE TE BLD COUNT W/DIF F mean platelet volume 10.2 fL 9.0-12 .4 Not Available [facility] (Lab) [address] [place], [address], 09/21/2022 19:14:27 09/21/1909/21/2022 CBC/C OMPLE TE BLD COUNT W/DIF F neutrophils 44.4 % 39.0-7 2.0 Not Available [facility] (Lab) [address] [place], [address], 09/21/2022 19:14:27 09/21/1909/21/2022 CBC/C OMPLE TE BLD COUNT W/DIF F lymphocytes 36.3 % 16.0-4 7.0 Not Available [facility] (Lab) [address] [place], [address], 09/21/2022 19:14:27 09/21/1909/21/2022 CBC/C OMPLE TE BLD COUNT W/DIF F monocytes 10.4 % 5.0-12 .0 Not Available [facility] (Lab) [address] [place], [address], 09/21/2022 19:14:27 09/21/1909/21/2022 CBC/C OMPLE TE BLD COUNT W/DIF F eosinophils 7.1 % 1.0-7. 0 high Not Available [facility] (Lab) [address] [place], [address], 09/21/2022 19:14:27 09/21/1909/21/2022 CBC/C OMPLE TE BLD COUNT W/DIF F basophils 0.9 % 0.0-2. 0 Not Available [facility] (Lab) [address] [place], [address], 09/21/2022 19:14:27 09/21/1909/21/2022 CBC/C OMPLE TE BLD COUNT W/DIF F immature granulocytes 0.9 % 0.00-0 .50 high Not Available [facility] (Lab) [address] [place], [address], 09/21/2022 19:14:27 09/21/19 23 09/21/2022 CBC/C OMPLE TE BLD COUNT W/DIF F neutrophils, absolute count 3.43 x10'3 /uL 1.5-8. 0 Not Available [facility] (Lab) [address] [place], [address], 09/21/2022 19:14:27 09/21/1909/21/2022 CBC/C OMPLE TE BLD COUNT W/DIF F lymphocytes, absolute count 2.80 x10'3 /uL 1.07-3 .43 Not Available [facility] (Lab) [address] [place], [address], 09/21/2022 19:14:27 09/21/19 23 09/21/2022 CBC/C OMPLE TE BLD COUNT W/DIF F monocytes, absolute count 0.80 x10'3 /uL 0.29-0 .99 Not Available [facility] (Lab) [address] [place], [address], 09/21/2022 19:14:27 09/21/1909/21/2022 CBC/C OMPLE TE BLD COUNT W/DIF F eosinophils, absolute count 0.55 x10'3 /uL 0.02-0 .53 high Not Available [facility] (Lab) [address] [place], [address], 09/21/2022 19:14:27 09/21/1909/21/2022 CBC/C OMPLE TE BLD COUNT W/DIF F basophils, absolute count 0.07 x10'3 /uL 0.01-0 .08 Not Available [facility] (Lab) [address] [place], [address], 09/21/2022 19:14:27 09/21/19 23 09/21/2022 CBC/C OMPLE TE BLD COUNT W/DIF F immature granulocytes ,absolute 0.07 x10'3 /uL 0.00-0 .05 high Not Available [facility] (Lab) [address] [place], [address], 09/21/2022 19:14:27 09/21/19 23 09/21/2022 CBC/C OMPLE TE BLD COUNT W/DIF F nucleated red blood cells 0.0 % -0 Not Available [facility] (Lab) [address] [place], [address], 09/21/2022 19:14:27 09/21/19 23 09/21/2022 CBC/C OMPLE TE BLD COUNT W/DIF F NRBC# 0.00 x10'3 /uL Not Available [facility] (Lab) [address] [place], [address], 09/21/2022 19:14:27 10/09/19 XR, knee No observ ation record ed. [id number] [facility] [place] [address], [place], [address], 11/15/2022 05:21:49 01/05/20 23 01/04/2023 XR, knee No observ ation record ed. [email or web address] [facility] [address], [place], [address], 01/18/2023 14:20:25 01/05/20 23 01/04/2023 XR, knee, 3 view No observ ation record ed. [email or web address] [facility] [address], [place], [address], 01/05/2023 09:00:05 01/19/20 23 01/18/2023 US, duple x, venou s, lower extre mity No observ ation record ed. [email or web address] [facility] [address], [place], [address], 01/18/2023 16:11:43 01/19/20 23 01/18/2023 US, duple x, venou s, lower extre mity No observ ation record ed. [email or web address] [facility] [address], [place], [address], 07/28/2023 15:56:50 02/14/20 XR, knee No observ ation record ed. [email or web address] [facility] [address], [place], [address], 02/13/2023 14:37:01 Result Notes None recorded. Problems Name Problem SNOMED Code Status Onset Date Resolution Date Notes Provider Name and Address Organization Details Recorded Time Body mass index 30+ - obesity 218886180 Active 2021 Not Available [facility] 3 07:05:53 Radiothera py follow-up 408248758 Active Not Available [facility] 3 07:05:53 Localized, primary osteoarthr itis of the pelvic region and thigh 137417641 Active Not Available [facility] 3 07:05:53 Anemia 566606306 Active 2016 Not Available [facility] 3 07:05:53 Osteoarthr itis of left knee joint 7604336048493 09 Active 2021 Not Available [facility] 3 07:05:53 Osteoarthr itis of right knee joint 3753746875867 00 Active 2021 Not Available [facility] 3 07:05:53 Obesity 484675604 Active 2022 Not Available [facility] 3 07:05:53 Pain of right knee joint 7066728853666 00 Active 2022 Not Available [facility] 3 07:05:53 Pain of left knee joint 4208197354009 07 Active 2021 Not Available [facility] 3 07:05:53 Pain of bilateral knee joints 7466688260161 04 Active 2021 Not Available [facility] 3 07:05:53 Hyperlipid emia 82673416 Active 2019 Not Available [facility] 3 07:05:54 Essential hypertensi on 76394068 Active 2016 Not Available [facility] 3 07:05:54 History of total hip arthroplas ty 595497057336 Active 2021 Not Available [facility] 3 07:05:54 Edema of lower extremity 375352664 Active 2022 Not Available [facility] 3 07:05:53 Problem Notes None recorded. Procedures Surgical History Date Name Laterality Status Provider Name and Address Organization Details Recorded Time 12/17/19 23 arthroplasty of right knee completed Silvia Chase RN [place] [facility] 01/18/2023 11:16:10 02/06/20 19 Total hip arthroplasty completed Not Available [facility] 11/15/2022 05:05:22 01/11/20 17 Colonoscopy completed Not Available [facility] 11/16/19 23 05:05:22 Tonsillectomy completed Not Available [facility] 11/15/2022 05:05:22 repair of meniscus completed Not Available [facility] 11/15/2022 05:05:22 Imaging Results Imaging Date Name Status LastModified by Organiz ation Details LastModified Time 10/09/2022 XR, knee completed [id number] [facility] [place] [address], [place], [address], 11/15/2022 05:21:49 01/04/2023 XR, knee completed [email or web address] [place] [address] [address], [place], [address], 01/18/2023 14:20:25 01/04/2023 XR, knee, 3 [email or web address] [place] [address] [address], [place], [address], 01/05/2023 09:00:05 01/18/2023 US, duplex, venous, lower extremity completed [email or web address] [place] [address], [place], [address], 01/18/2023 16:11:43 01/18/2023 US, duplex, venous, lower extremity completed [email or web address] [facility] [address], [place], [address], 07/28/2023 15:56:50 02/13/2023 XR, knee completed [email or web address] [facility] [place] [address], [place], [address], 02/13/2023 14:37:01 Procedure Notes None recorded. Medical Equipment None Reported. Allergies No known drug allergies Medications Name Sig Start Date Stop Date Status Note LastModified by Organization Details LastModified Time celecoxib 200 mg capsule TAKE 1 CAPSULE BY MOUTH EVERY DAY active Not Available Not Available No t Available prednison e 10 mg tablet TAKE 1 TABLET BY MOUTH THREE TIMES DAILY FOR 3 DAYS TWICE DAILY FOR 2 DAYS EVERY DAY FOR 1 DAY 01/18 completed Not Available Not Available Not Available atorvasta tin 10 mg tablet TAKE 1 TABLET BY MOUTH EVERY DAY 2023 active Not Available Not Available Not Avai lable prednison e 20 mg tablet 03/25 completed Not Available Not Available Not Available hydralazi ne 25 mg tablet TAKE 1 TABLET BY MOUTH FOUR TIMES DAILY 2023 active Not Available Not Available Not Avai lable metronida zole 500 mg tablet TK 1 T PO TID FOR 7 DAYS 12/26 completed Not Available Not Available Not Available nifedipin e ER 30 mg tablet,ex tended release TAKE 1 TABLET BY MOUTH DAILY active Not Available Not Available No t Available amlodipin e 5 mg tablet TAKE 1 TABLET BY MOUTH EVERY DAY 2023 active Not Available Not Available Not Avai lable ciproflox acin 500 mg tablet TK 1 T PO BID FOR 7 DAYS 12/26 completed Not Available Not Available Not Available peg-elect rolyte solution 420 gram oral solution 01/30 completed Not Available Not Available Not Available vancomyci n 125 mg capsule Take 1 capsule every 6 hours by oral route. 12/04 completed cxl script per Vilma pt. doesn't have C-Diff. Not Available Not Available Not Available prednison e 10 mg tablets in a dose pack Take 1 tab by mouth, 3 times a day for 3 daysTake 1 tab by mouth 2 times a day for 2 daysTake 1 tab by mouth once a day for 1 day 01/18 completed Not Available Not Available Not Available Kenalog 10 mg/mL suspensio n for injection In office injectio n administ ered by the provider 09/21 completed [facility]: [phone] 01-04 Not Available Not Available Not Available hydrocodo ne 7.5 mg-acetam inophen 325 mg tablet TAKE 1 TABLET BY MOUTH EVERY 4 HOURS NEEDED FOR PAIN active Not Available Not Available No t Available nifedipin e ER 60 mg tablet,ex tended release TAKE 1 TABLET BY MOUTH EVERY DAY 2023 active Not Available Not Available Not Avai lable dicyclomi ne 10 mg capsule TK 1 C PO TID PRN 05/28 completed Not Available Not Available Not Available amoxicill in 875 mg-potass ium clavulana te 125 mg tablet 10/26 completed Not Available Not Available Not Available Adult Low Dose Aspirin 81 mg tablet,de layed release Take 1 tablet every day by oral route. 2016 active Not Available Not Available Not Avai lable Pneumovax -23 25 mcg/0.5 mL injection syringe active Not Available Not Available Not Available metoprolo l tartrate 25 mg tablet TAKE 1 TABLET BY MOUTH TWICE DAILY 2023 active Not Available Not Available Not Avai lable multivita min QD 2016 active Not Available Not Available Not Avai lable Synvisc-O ne 48 mg/6 mL intra-art icular syringe Take 6 mL by intraart icular route. 09/21 completed Not Available Not Available Not Available Prevnar 13 (PF) 0.5 mL intramusc ular syringe active Not Available Not Available Not Available Xarelto 10 mg tablet TAKE 1 TABLET BY MOUTH DAILY DIRECTED 01/18 completed used after knee surgery for 12 days Not Available Not Available Not Available ropivacai ne (PF) 5 mg/mL (0.5 %) injection solution Take 40 mg by injectio n route. 09/21 completed Not Available Not Available Not Available Fluzone High-Dose [id number] (PF) 180 mcg/0.5 mL intramusc ular syringe active Not Available Not Available Not Available Fluzone High-Dose (PF) 180 mcg/0.5 mL intramusc ular syringe active Not Available Not Available Not Available Afluria Qd (36 mos up)(PF)60 mcg (15 mcg x4)/0.5 mL IM syringe active Not Available Not Available Not Available Fluzone High-Dose Quad (PF) 240 mcg/0.7 mL IM syringe active Not Available Not Available Not Available Vitals Date Recorded Body mass index (BMI) Body height Body weight Provider Name and Address Organization Details Last Updated DateTime 10/09/2022 38 kg/m2 182.88 cm 818489.86 g Not [facility] 11/15/2022 05:09:14 Date Recorded Body height Body mass index (BMI) Body weight Provider Name and Address Organization Details Last Updated DateTime 12/21/2022 182.88 cm 38.7 kg/m2 731163.83 g Leida Dc CNA [place] [employer] [facility] [address] 12/21/2022 10:50:53 Date Recorded Body height Body mass index (BMI) Body weight Provider Name and Address Organization Details Last Updated DateTime 01/16/2023 182.88 cm 38.7 kg/m2 075455.83 g JIMENEZ Arredondo [employer] [facility] [address] 01/16/2023 13:56:01 Date Recorded Body height Body mass index (BMI) Body weight Body temperature Heart rate Oxygen saturation Oxygen saturation in Arterial blood by Pulse oximetry Systolic blood pressure Diastolic blood pressure Provider Name and Address Organization Details Last Updated DateTime 182.88 cm 38.5 kg/m2 156853. 23 g 97.6 [degF] 81 /min 97 % 97 % 118 mm[Hg] 80 mm[Hg] Silvia Chase RN [place] [employer] [facility] [address] 11:19:05 Date Recorded Body height Provider Name an d Address Organization Details Last Updated DateTime 02/13/2023 182.88 cm Guerda Love [place] [employer] [facility] 02/13/2023 14:08:08 Social History Question Answer Notes LastModified by Organization Details LastModified Time Tobacco Smoking Status Former Smoker quit age 26 Not Available [facility] 11/15/2022 05:02:40 Do You Have An Advance Directive? No Information Provided To Patient MIGRATION.030 [id number] Information not available 11/15/2022 What Is Your Level Of Alcohol Consumption? Moderate 1 Glass Of Wine Per Day MIGRATION.030 012816 Information not available 11/15/2022 Are You Blind Or Do You Have Difficulty Seeing? No MIGRATION.030 [id number] Information not available 11/15/2022 What Is Your Level Of Caffeine Consumption? Moderate MIGRATION.030 [id number] Information not available 11/15/2022 How Much Tobacco Do You Chew? None MIGRATION.030 [id number] Information not available 11/15/2022 In The 14 Days Before Symptom Onset, Have You Had Close Contact With A Laboratory-conf irmed COVID-19 While That Case Was Ill? No MIGRATION.030 [id number] Information not available 11/15/2022 In The 14 Days Before Symptom Onset, Have You Had Close Contact With A Person Who Is Under Investigation For COVID-19 While That Person Was Ill? No MIGRATION.030 [id number] Information not available 11/15/2022 Are You Deaf Or Do You Have Serious Difficulty Hearing? No MIGRATION.030 634754 Information not available 11/15/2022 What Type Of Diet Are You Following? REGULAR MIGRATION.030 946251 Information not available 11/15/2022 Which Illicit Or Recreational Drugs Have You Used? None MIGRATION.030 045274 Information not available 11/15/2022 Do You Or Have You Ever Used E-cigarettes Or Vape? Never Used Electronic Cigarettes MIGRATION.030 449310 Information not available 11/15/2022 What Is The Highest Grade Or Level Of School You Have Completed Or The Highest Degree You Have Received? 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 Yes MIGRATION.030 565986 Information not available 11/15/2022 What Is The Fluoride Status Of Your Home? Unknown MIGRATION.0301 456698 Information not available 11/15/2022 When Did You Quit Smoking? 16+yearssincelast cigarette MIGRATION.0301 [id number] Information not available 11/15/2022 Are There Any Guns Present In Your Home? Yes MIGRATION.0301 357149 Information not available 11/15/2022 Do You Use Insect Repellent Routinely? No MIGRATION.0301 034356 Information not available 11/15/2022 Where Do You Live? [facility] MIGRATION.0301 [id number] Information not available 11/15/2022 Do You Have A Medical Power Of Dental Insurance Coordinator? No MIGRATION.0301 [id number] Information not available 11/15/2022 What Was The Date Of Your Most Recent Tobacco Screening? 01/18/2023 [id number] Information not available 01/18/2023 Have You Ever Been Counseled For Unhealthy Alcohol Use? No MIGRATION.0301 823131 Information not available 11/15/2022 Do You Have Any Pets? Yes MIGRATION.0301 141356 Information not available 11/15/2022 What Is Your Relationship Status? Domestic Partner MIGRATION.0301 605643 Information not available 11/15/2022 Do You Use Your Seat Belt Or Car Seat Routinely? Yes MIGRATION.0301 068183 Information not available 11/15/2022 Do You Have Smoke And Carbon Monoxide Detectors In Your Home? Yes MIGRATION.0301 028951 Information not available 11/15/2022 Are You Passively Exposed To Smoke? No MIGRATION.0301 857603 Information not available 11/15/2022 Do You Or Have You Ever Used Smokeless Tobacco? Never Used Smokeless Tobacco MIGRATION.0301 432631 Information not available 11/15/2022 Are There Any Smokers In Your House? No MIGRATION.0301 049373 Information not available 11/15/2022 How Much Tobacco Do You Smoke? No MIGRATION.0301 364035 Information not available 11/15/2022 What Types Of Sporting Activities Do You Participate In? None MIGRATION.0301 192668 Information not available 11/15/2022 Do You Feel Stressed (tense, Restless, Nervous, Or Anxious, Or Unable To Sleep At Night)? [id number] MIGRATION.0301 922324 Information not available 11/15/2022 Do You Use Any Illicit Or Recreational Drugs? No MIGRATION.0301 978363 Information not available 11/15/2022 Do You Use Sunscreen Routinely? No MIGRATION.0301 286891 Information not available 11/15/2022 Has Tobacco Cessation Counseling Been Provided? No MIGRATION.0301 801714 Information not available 11/15/2022 Have You Recently Traveled Abroad? No MIGRATION.0301 [id number] Information not available 11/15/2022 Do You Have Any Dietary Restrictions? No MIGRATION.0301 265568 Information not available 11/15/2022 Do You Or Have You Ever Used Any Other Forms Of Tobacco Or Nicotine? Yes MIGRATION.0301 445484 Information not available 11/15/2022 Sex: Male Functional Status Question Answer Note LastModified by [employer] Details LastModified Time Do you have difficulty walking or climbing stairs? No MIGRATION.258169 7145 Information not available 11/15/2022 Do you have transportation difficulties? No MIGRATION.890491 0309 Information not available 11/15/2022 Are you able to walk? YESWOREST MIGRATION.[id number] [id number] Information not available 11/15/2022 Do you have difficulty doing errands alone? No MIGRATION.119438 7459 Information not available 11/15/2022 Are you able to care for yourself? Yes MIGRATION.426347 9654 Information not available 11/15/2022 Do you have difficulty dressing or bathing? No MIGRATION.859250 0954 Information not available 11/15/2022 What is your exercise level? None due to right knee pain MIGRATION.364744 3124 Information not available 11/15/2022 Mental Status Question Answer Note LastModified by Organizat ion Details LastModified Time Do you have difficulty concentrating, remembering or making decisions? No MIGRATION.[id number] Information not available 11/15/2022 Family History Relationship Description Onset Age of this Age Resolved Age Notes LastModified by Organization Details LastModified Time Mother Alzheimer's disease deceas ed MIGRATION.442 [id number] Not available 11/15/2022 05:05:25 Father Heart disease deceas ed MIGRATION.090 [id number] Not available 11/15/2022 05:05:25 Sister Diabetes mellitus MIGRATION.345 [id number] Not available 11/15/2022 05:05:25 Brother Deep venous thrombosis MIGRATION.641 [id number] Not available 11/15/2022 05:05:25 Son Hypertensive disorder MIGRATION.184 [id number] Not available 11/15/2022 05:05:25 Medical History Condition Response NERVE DISEASE N BLINDNESS N RHEUMATIC FEVER N KIDNEY STONES N BLADDER PROBLEMS N MRSA N OTHER # 1 N POLIO N LUNG DISEASE/DISORDER N COPD N RADIATION / CHEMOTHERAPY N Other # 2 N BLOOD DISEASES N EAR OR HEARING PROBLEMS N MUMPS N BOWEL PROBLEMS N DEPRESSION (INCLUDING POST ) N STROKE/TIA N ULCERS N BENIGN PROSTATIC HYPERPLASIA N MEASLES N MYOCARDIAL INFARCTION N OBESITY N GERD/NAUSEA N ANEURYSM N URINARY/BLADDER/KIDNEY PROBLEMS N CORONARY ARTERY DISEASE (CAD) N ADDICTION CONCERNS N ENDOMETRIOSIS N Impotence N USE OF BLOOD THINNERS N SKIN PROBLEMS N GASTROINTESTINAL DISORDER N PERIPHERAL VASCULAR DISEASE N MUSCLE,JOINT OR BONE PROBLEMS N GASTROINTESTINAL BLEEDING N BLOOD CLOTS N ASTHMA N CATARACTS N ERECTILE DYSFUNCTION N VARICOSITIES N GI PROBLEMS Y Low Testosterone N INFERTILITY N AIDS/HIV N CHEMOTHERAPY / RADIATION N LIVER DISEASE N MALE HYPOGONADISM N HYPERTENSION Y Deficiency N TOURETTE'S N ANXIETY DISORDER N BLOOD TRANSFUSION N ANEMIA/BLOOD DISORDER Y CHRONIC EAR INFECTIONS N BRONCHITIS N TUBERCULOSIS N GLAUCOMA N FOOT PROBLEM N DIVERTICULITIS N SLEEP APNEA N CHICKENPOX N INFECTIOUS DISEASE N HEART ARRHYTHMIA N PROSTATE N INSOMNIA N HIGH CHOLESTEROL / HYPERLIPIDEMIA N HYPERTHYROIDISM N EYE PROBLEMS N EDEMA N CHRONIC PAIN SYNDROME N HYPOTHYROIDISM N CAROTID BLOCKAGE N CONSTIPATION N BACK / NECK PROBLEMS N HAVE YOU BEEN HOSPITALIZED OR SEEN IN [facility] IN THE PAST YEAR ? Y ATHEROSCLEROSIS N BREAST PROBLEMS N DIALYSIS N ECZEMA N OSTEOPOROSIS N ARTHRITIS Y APPENDICITIS N DIABETES, TYPE N BAD TEETH N ENT N HEARTBURN / REFLUX N AUTISM SPECTRUM DISORDER (ASD) N HEPATITIS / LIVER DISEASE N GOUT N SLEEP DISORDER N ALZHEIMER'S DISEASE N Brain Problems N HERPES N DEMENTIA N HEADACHES/MIGRAINES N SEIZURES/EPILEPSY N VASCULAR DISEASE N PACEMAKER N Blood Disorder N DIZZINESS N HEART DISEASE/HEART PROBLEMS N KIDNEY DISEASE N MULTIPLE SCLEROSIS N CARDIAC ARRHYTHMIA N CANCER: SPECIFY N ATRIAL FIBRILLATION N Gall Stones N PULMONARY EMBOLISM N AUTOIMMUNE DISEASE N Immunizations Vaccine Type Date Status Note Provider Nam e and Address Organization Details Recorded Time COVID-19, mRNA, LNP-S, PF, 30 mcg/0.3 mL dose 1 completed Not Available [facility] 04/01/2023 07:05:54 Influenza, high-dose, quadrivalent, PF 1 completed [facility] 07:05:54 COVID-19, mRNA, LNP-S, PF, 30 mcg/0.3 mL dose 1 completed Not Available [facility] 04/01/2023 07:05:54 COVID-19, mRNA, LNP-S, PF, 30 mcg/0.3 mL dose 1 completed Not Available [facility] 04/01/2023 07:05:54 Influenza, high-dose, quadrivalent, PF 0 completed Not Available [facility] 04/01/2023 07:05:54 Influenza, split virus, quadrivalent, preservative 9 completed Not Available [facility] 04/01/2023 07:05:54 pneumococcal polysaccharide PPV23 9 completed Not Available [facility] 04/01/2023 07:05:54 Influenza, high-dose, trivalent, PF 8 completed Not Available [facility] 04/01/2023 07:05:54 Pneumococcal conjugate PCV 13 8 completed Not Available [facility] 04/01/2023 07:05:54 Influenza, high-dose, trivalent, PF 7 completed Not Available [facility] 04/01/2023 07:05:54 Tdap 6 completed Not Available [facility] 04/01/2023 07:05:54 influenza, unspecified formulation 2 completed Not Available [facility] 04/01/2023 07:05:54 Past Encounters Encounter ID Performer Location Encounter Start Date Encounter Closed Date Diagnosis/Indication Diagnosis SNOMED-CT Code Diagnosis ICD10 Code Diagnosis Note [id number] [facility] [place] [address] [place] [address] 03/08/2021 00:00:00 03/15/2021 22:19:23 [id number] [facility] [place] [address] [place] [address] 08/30/2021 00:00:00 08/30/2021 21:47:53 [id number] [facility] [place] [address] [place] [address] 02/28/2022 00:00:00 02/28/2022 10:36:25 [id number] [facility] [address] [place] [address] 03/23/2022 00:00:00 03/23/2022 11:06:25 [id number] [facility] [address] [place] [address] 04/20/2022 00:00:00 04/20/2022 11:09:51 [id number] [facility] [address] [place] [address] 04/27/2022 00:00:00 04/27/2022 12:15:28 [id number] [facility] [address] [place] [address] 09/21/2022 00:00:00 10/08/2022 21:15:32 [id number] [facility] [address] [place] [address] 10/09/2022 00:00:00 10/09/2022 11:06:14 [id number] Fred Larsen MD [facility] [address] [place] [address] 12/21/2022 10:39:41 12/21/2022 12:28:30 Pain of bilateral knee joints [id number] 69613 M25.561 M25.562 Osteoarthr itis of right knee joint [id number] 73882 M17.11 Osteoarthr itis of left knee joint [id number] 17138 M17.12 [id number] Fred Larsen MD [facility] [address] [place] [address] 01/16/2023 13:52:39 01/16/2023 15:13:15 Pain of bilateral knee joints 1444438648 22752 M25.561 M25.562 Osteoarthr itis of right knee joint 4703518011 17505 M17.11 Osteoarthr itis of left knee joint 3984570412 14392 M17.12 History of right total knee replacement 4855615157 473806 Z96.651 [id number] Moose Garcia MD [facility] [address] [facility] [address] [place] [address] 01/18/2023 11:10:06 01/18/2023 12:33:22 Edema of lower extremity [id number] R60.0 [id number] Fred Larsen MD [facility] [address] [place] [address] 02/13/2023 14:00:13 02/13/2023 14:55:34 Osteoarthritis of right knee joint 8970300558 42832 M17.11 History of right total knee replacement 6901385635 125003 Z96.651 Health Concerns Section Related Observation LastModified by Organization Detai ls LastModified Time None Recorded Concern Status LastModified by Organization Details LastModified Time None Recorded Advance Directives Directive N: Information provided to p atient Payers Encounter Date Sequence Insurance Name Policy Number Policy Gilliam Covered Member ID Gilliam Member ID Guarantor Name 12/21/2022 1 [facility] - MEDICARE COMPLETE CHOICE (MEDICARE REPLACEMENT PPO) [id number] [id number] [place] 01/16/2023 1 [facility] MEDICARE COMPLETE CHOICE (MEDICARE REPLACEMENT PPO) [id number] [id number] [place] 01/18/2023 1 [facility] - MEDICARE COMPLETE CHOICE (MEDICARE REPLACEMENT PPO) [id number] [id number] [place] 02/13/2023 1 [facility] - MEDICARE COMPLETE CHOICE (MEDICARE REPLACEMENT PPO) [id number] [id number] [place] Notes Date Note Type Note Provider Name and Address Organization Details Recorded Time 12/21/2022 text/html Patient returns knee pain bilaterally. He has arthritis in both knees and he is fit basically failed conservative treatment he has had medicine therapy cortisone exercise time says the right 1 hurts worse than the left and he would like to have that when addressed 1st. Fred Larsen MD [address], [place], [address], [employer] 12/21/2022 11:25:26 01/16/2023 text/html Patient returns status post total knee arthroplasty right. His incision looks good he is walking well has very little in the way of pain. Fred Larsen MD [address], [place], [address], [place] 01/16/2023 14:39:53 01/18/2023 text/html Had knee surgery little bit of swelling maybe a little bit more over the last couple of days without any chest pain or shortness of breath Moose Garcia MD [address], [place], [address], [place] 01/20/2023 17:46:12 02/13/2023 text/html Patient returns status post total knee arthroplasty right. The pain for the most part is gone he has got excellent motion and walking well. He seems quite happy. Fred Larsen MD [address], [place], [address], [place] 02/13/2023 14:37:31
[2024-12-08 14:30] LABS: MRSA (PCR) NOT DETECTED (NOT DETECTE)
== END 2024-12-08 11:48 | disposition home or self-care (01) ==
LOC: ANHSURGERY 11:51
PROVIDERS: PCP Internal Medicine; Visit Provider Orthopaedic Surgery
DX: M17.12 Unilateral primary osteoarthritis, left knee (principal); Z01.818 Encounter for other preprocedural examination
CPT/HCPCS: 80307; 82040; 82565; 82947; 83036; 85025; 86850; 86900; 86901; 87641; 93005

== ENCOUNTER 2024-12-15 00:46 | Day surgery (SDC) | payer MEDICARE, SELFPAY ==
[2024-12-08 12:09] VITALS: BP 137/83; PULSE 72; RESP 16; TEMP 36.3; O2SAT 98; BMI 38.7
--- NOTE | 2024-12-08 12:24 | PC.NURSE ---
Report to the Outpatient Waiting Room, entrance under the green pavilion located off [facility], at time __0600am on date __12/15/24 . Planned Procedure Time: _0730am .? Time changes happen often and if your time is changed the preop area will call you the afternoon before. - You and your visitor will be asked to self-screen and do not enter if you have any COVID symptoms. Please call surgeon if you need to reschedule. - A mask is optional within the hospital at this time. Patients may have clear liquids (water, carbonated beverages, clear teas, apple juice) until 3 hours prior to surgery with a maximum of 20 ounces. - No food from midnight until time of surgery and no smoking, or chewing tobacco (or any form of nicotine). No chewing gum, candy or mints. (0430am) Take only the following medications with a SIP of water on the morning of surgery: Toprol and Hydralizine DO NOT STOP ANY OF YOUR OTHER PRESCRIPTION MEDICATIONS PRIOR TO SURGERY EXCEPT THE FOLLOWING Hold all vitamins and supplements for 3 days per anesthesiologist.Date to take last dose___12/11/24 Medications to discontinue per physician Aspirin for [address] Larsen Date to take last dose__12/09/24 Please no make-up, nail korean, hairspray, perfume, deodorant, or body powder the day of surgery.? No jewelry (including any body piercings) or valuables the day of surgery, leave them at home.? Please take a shower or bath the night before, or the morning of, surgery with an antibacterial soap.? Wear comfortable, loose fitting clothing.? Hibpriscillae s pt has it. - Jewelry must be removed prior to entering the operating room.? Rings and piercings that are not removed may be cut off. - The hospital will not accept responsibility for valuables.? - Please leave all valuables, including medications, at home the day of surgery. If you are going home after surgery, a licensed driver wheelchair must drive you home.? - NO public transportation without another adult if you receive anesthesia. - We recommend that an adult stay with you for 24 hours following discharge. - We also recommend that you do not drive, make important decision, drink alcoholic beverages, or take any drugs that were not prescribed by your health care provider for at least 24 hours after your discharge time. Follow any additional instructions given to you from your surgeon. Telephone instructions given to ___Patient and asked if any additional questions and then verbalized understanding. Patient advised to call surgeon office or pre surgery nurse liaison [phone] if any additional questions.
--- NOTE | 2024-12-12 19:23 | P.PNAN_ITS ---
Anes - Eval Pre Procedure Procedure: Operation Date: 12/15/24 07:30 Proposed Procedures p Left Total Knee Arthroplasty - Fred Larsen MD Date/Time: 12/12/24 19:23 Pre Op Diagnosis: oa left knee Patient Data Age: 79 Gender: M Height: 1.8 m Weight: 126.2 kg Last Vital Signs Temp 36.3 C L 12/08/24 12:09 Pulse 72 12/08/24 12:09 Resp 16 12/08/24 12:09 BP 137/83 12/08/24 12:09 Pulse Ox 98 12/08/24 12:09 O2 Del Method Room Air 12/08/24 12:09 Allergies Allergy/AdvReac Type Severity Reaction Status Date / Time No Known Allergies Allergy Verified 12/08/24 12:03 Home Medications ?Medication ?Instructions ?Recorded ?Confirmed ?Type Larginine 500 mg PO QAM 12/26/22 12/08/24 History amlodipine 5 mg tablet 5 mg PO HS 12/26/22 12/08/24 History ascorbic acid (vitamin C) 1,000 mg 1 g PO QAM 12/26/22 12/08/24 History tablet (Vitamin C) aspirin 81 mg tablet,delayed 81 mg PO QAM 12/26/22 12/08/24 History release atorvastatin 10 mg tablet 10 mg PO HS 12/26/22 12/08/24 History celecoxib 200 mg capsule 200 mg PO QAM 12/26/22 12/08/24 History cholecalciferol (vitamin D3) 25 25 mcg PO QAM 12/26/22 12/08/24 History mcg (1,000 unit) capsule coenzyme Q10 100 mg capsule 100 mg PO QAM 12/26/22 12/08/24 History (CoQ-10) ferrous sulfate 27 mg iron tablet 27 mg PO QAM 12/26/22 12/08/24 History metoprolol tartrate 25 mg tablet 25 mg PO BID 12/26/22 12/08/24 History qmbmhjkylvau-isb-ofrer acid-vit 1 tablet PO QAM 12/26/22 12/08/24 History K-lycop 400 mcg-20 mcg-370 mcg tablet (Men's 50 Plus Multivitamin) nifedipine 60 mg tablet,extended 60 mg PO HS 12/26/22 12/08/24 History release vitamin B complex 1 cap PO QAM 12/26/22 12/08/24 History vitamin E 400 unit tablet 400 unit PO QAM 12/26/22 12/08/24 History hydralazine 25 mg tablet 25 mg PO BID 11/25/24 12/08/24 History Patient hx anesthesia problems: none Family hx anesthesia problems: none Results Review: All pre-operative results and documents have been reviewed as part of the pre- operative evaluation. [facility] Past Medical History Medical History (Updated 12/12/24 @ 19:25 by Alyssa Tee CRNA) Arthritis Hard of hearing Anemia Hypertension Hyperlipidemia Surgical History Surgical History (Reviewed 11/25/24 @ 07:21 by Cleo Smith [facility] [address]) History of tonsillectomy and adenoidectomy History of total hip replacement Left hip S/P total knee arthroplasty Family History Family History (Reviewed 11/25/24 @ 07:21 by Cleo Smith [facility]) Father Heart disease Son Diabetes mellitus Mother Alzheimer's dementia Social History Social History (Updated 11/25/24 @ 10:50 by Vianca Vázquez [facility]) Social History: The patient is and he has 2 biological children and 1 stepchild. He is retired. He occasionally drinks a beer. Code status full code Smoking packs per day: 1 Smoking cigarettes per day: 20.0 Years smoked: 10 Smoking pack-years: 10.00 Smoking status: Former smoker Tobacco type: cigarettes Second hand tobacco smoke exposure: No Smoking end date: 09/17/70 Additional smoking assessment comments: PT DENIES ALL FORMS OF TOBACCO USE Alcohol intake: former Drinks per week: 4 Alcohol use details: not in a year, was few drinks few times a week Substance use: never Substance use type: does not use Do You Feel Safe in your Home?: Yes Lack of Transportation: No Lack of Food: Never True Current Housing: I Have Housing Concerned About Future Housing: No Difficulty Paying Gas/Electric Bills: No Difficulty Paying for Meds: No Currently Unemployed: No Education: High School Diploma/GED Difficulty w/ Childcare or Family Care: No Living arrangements: with family Additional living arrangements comments: Spiritual care concerns: No Exam Day of Procedure 12/12/24 19:23
--- NOTE | 2024-12-14 17:33 | P.HP_ITS ---
H&P: HPI History of Present Illness Date/Time: 12/14/24 17:33 Chief Complaint: Patient has osteoarthritis of the Left knee that has been unresponsive to conservative treatment. He would like to proceed with A Knee Replacement on the LEFT. Review of Systems Musculoskeletal: Musculoskeletal: Reports arthralgias, Reports joint swelling and Reports stiffness Neurologic: Reports abnormal gait [facility] Past Medical History Medical History (Updated 12/12/24 @ 19:25 by Alyssa Tee CRNA) Arthritis Hard of hearing Anemia Hypertension Hyperlipidemia Surgical History Surgical History (Reviewed 11/25/24 @ 07:21 by Cleo Smith [facility]) History of tonsillectomy and adenoidectomy History of total hip replacement Left hip S/P total knee arthroplasty Family History Family History Father Heart disease Son Diabetes mellitus Mother Alzheimer's dementia Social History Social History (Updated 11/25/24 @ 10:50 by Vianca Vázquez CMA) Social History: The patient is and he has 2 biological children and 1 stepchild. He is retired. He occasionally drinks a beer. Code status full code Smoking packs per day: 1 Smoking cigarettes per day: 20.0 Years smoked: 10 Smoking pack-years: 10.00 Smoking status: Former smoker Tobacco type: cigarettes Second hand tobacco smoke exposure: No Smoking end date: 09/17/70 Additional smoking assessment comments: PT DENIES ALL FORMS OF TOBACCO USE Alcohol intake: former Drinks per week: 4 Alcohol use details: not in a year, was few drinks few times a week Substance use: never Substance use type: does not use Do You Feel Safe in your Home?: Yes Lack of Transportation: No Lack of Food: Never True Current Housing: I Have Housing Concerned About Future Housing: No Difficulty Paying Gas/Electric Bills: No Difficulty Paying for Meds: No Currently Unemployed: No Education: High School Diploma/GED Difficulty w/ Childcare or Family Care: No Living arrangements: with family Additional living arrangements comments: Spiritual care concerns: No Meds Home Medications and Allergies Home Medications ?Medication ?Instructions ?Recorded ?Confirmed ?Type Larginine 500 mg PO QAM 12/26/22 12/08/24 History amlodipine 5 mg tablet 5 mg PO HS 12/26/22 12/08/24 History ascorbic acid (vitamin C) 1,000 mg 1 g PO QAM 12/26/22 12/08/24 History tablet (Vitamin C) aspirin 81 mg tablet,delayed 81 mg PO QAM 12/26/22 12/08/24 History release atorvastatin 10 mg tablet 10 mg PO HS 12/26/22 12/08/24 History celecoxib 200 mg capsule 200 mg PO QAM 12/26/22 12/08/24 History cholecalciferol (vitamin D3) 25 25 mcg PO QAM 12/26/22 12/08/24 History mcg (1,000 unit) capsule coenzyme Q10 100 mg capsule 100 mg PO QAM 12/26/22 12/08/24 History (CoQ-10) ferrous sulfate 27 mg iron tablet 27 mg PO QAM 12/26/22 12/08/24 History metoprolol tartrate 25 mg tablet 25 mg PO BID 12/26/22 12/08/24 History avquihshprzt-lxk-mseyv acid-vit 1 tablet PO QAM 12/26/22 12/08/24 History K-lycop 400 mcg-20 mcg-370 mcg tablet (Men's 50 Plus Multivitamin) nifedipine 60 mg tablet,extended 60 mg PO HS 12/26/22 12/08/24 History release vitamin B complex 1 cap PO QAM 12/26/22 12/08/24 History vitamin E 400 unit tablet 400 unit PO QAM 12/26/22 12/08/24 History hydralazine 25 mg tablet 25 mg PO BID 11/25/24 12/08/24 History Allergies Allergy/AdvReac Type Severity Reaction Status Date / Time No Known Allergies Allergy Verified 12/08/24 12:03 Exam Narrative: Patient has motion 5-110. He has varus deformity and walks with an antalgic gait. NVI. Pain and grainding with manipulation. Eyes: General: appearance normal, both eyes and all related structures Neck: Neck: supple Cardio: Rate: regular rate Rhythm: regular rhythm Assessment and Plan Assessment and plan (1) Osteoarthritis of left knee: Code(s): M17.12 - Unilateral primary osteoarthritis, left knee Status: Acute Assessment and Plan: Patient has Osteoarthritis of his LEFT knee. Conservative treatment is no longer effective at this time. He would like to proceed with a Total Knee Arthroplasty. I have discussed risks, benefits, limitations, and alternatives in detail. He understands and agrees. Will proceed per his request. (2) History of knee replacement procedure of right knee: Code(s): Z96.651 - Presence of right artificial knee joint Status: Acute
[2024-12-15] VITALS (14 sets, daily range): BP systolic 108–157; BP diastolic 64–80; PULSE 67–78; RESP 12–18; TEMP 36.2–37.2; O2SAT 96–100; BMI 37.9
--- NOTE | ~2024-12-15 | XR_ITS ---
EXAMINATION: [id number] DATE: 12/15/2024 09:40 INDICATION: Postoperative evaluation following left total knee arthroplasty. TECHNIQUE: Anteroposterior and lateral views of the left knee were obtained. COMPARISON: None. FINDINGS: Left total knee arthroplasty with patellar resurfacing appears well seated and in near anatomic align ment. No fractures identified. Anterior skin mesha and expected postoperative subcutaneous, intram edullary and intra-articular gas. IMPRESSION: 1. Left total knee arthroplasty, negative for postoperative purposes. Reviewed, dictated and finalized at location B.
--- OUTSIDE RECORDS SUMMARY | 2024-12-15 00:49 | XMS_ITS | Data Portability ---
Author Organization [place] [facility], Main Office Address [address] [place] [address] Care Team Providers Care Communications Director Name Role Phone MOOSE GARCIA Primary Care Provider MOOSE GARCIA Referring Provider Assessment Encounter Date Assessment Date Assessment LastModified [...] Discussed risks benefits limitations and alternatives again. [email or web address] Not available 12/21/2022 11:25:22 01/16/2023 01/16/2023 Patient [...] about 3-4 weeks for postop x-rays discussed. [email or web address] Not available 01/16/2023 14:37:44 01/18/2023 01/18/2023 Will get a venous duplex just to be safe see me in 2 months otherwise continue current therapy [email or web address] Not available 01/20/2023 17:45:55 02/13/2023 02/13/2023 Patient [...] XR, knee 2022 023 [email or web address] [facility] [place], [address], [place], [address], 14:55:34 US, duplex, venous, lower extremity - STAT HOLD AND CALL WITH RESULTS [address] [facility], [address], [place], [address], 15:44:22 Medication Orders None recorded. Patient TargetsNo targets recorded. Patient InstructionsNo instructions recorded. Reason for Referral None Reported. Results Created Date Observation Date Name Description Value Unit Range Abnormal Flag Note LastModifiedBy Organization Detail LastModifiedTime 09/21/1909/21/2022 TSH thyroid-stim ulating hormone 4.050 uIU/m L 0.465- 4.680 Not Available [facility] (Lab) [address] [place], [address], 09/21/2022 20:41:13 09/21/19 23 09/21/2022 T3 FREE free T3 3.8 pg/mL 2.77-5 .27 Not Available [facility] (Lab) [address] [place], [address], 09/21/2022 20:32:44 09/21/19 23 09/21/2022 T4 FREE free T4 0.81 NG/dL 0.78-2 .19 Not Available [facility] (Lab) [address] [place], [address], 09/21/2022 20:32:42 09/21/19 23 09/21/2022 COMPR EHENS EDUAR METAB OLIC PANEL sodium 139 mmol/ L 137-14 5 Not Available [facility] (Lab) [address] [facility] [place], [address], 09/21/2022 20:32:07 09/21/19 23 09/21/2022 COMPR EHENS EDUAR METAB OLIC PANEL potassium 4.4 mmol/ L 3.5-5. 1 Not Available [facility] (Lab) [address] [facility] [place], [address], 09/21/2022 20:32:07 09/21/19 23 09/21/2022 COMPR EHENS EDUAR METAB OLIC PANEL chloride 101 mmol/ L 98-107 Not Available [facility] (Lab) [address] [place], [address], 09/21/2022 20:32:07 09/21/19 23 09/21/2022 COMPR EHENS EDUAR METAB OLIC PANEL carbon dioxide 28 mmol/ L 22-30 Not Available [facility] (Lab) [address] [place], [address], 09/21/2022 20:32:07 09/21/19 23 09/21/2022 COMPR EHENS EDUAR METAB OLIC PANEL anion gap 14.4 mmol/ L 14-22 Not Available [facility] (Lab) [address] [place], [address], 09/21/2022 20:32:07 09/21/19 23 09/21/2022 COMPR EHENS EDUAR METAB OLIC PANEL glucose 115 mg/dL 70-99 high Not Available [facility] (Lab) [address] [place], [address], 09/21/2022 20:32:07 09/21/19 23 09/21/2022 COMPR EHENS EDUAR METAB OLIC PANEL BUN 17 mg/dL 8-19 Not Available [facility] (Lab) [address] [place], [address], 09/21/2022 20:32:07 09/21/19 23 09/21/2022 COMPR EHENS EDUAR METAB OLIC PANEL creatinine 1.14 mg/dL 0.66-1 .25 Not Available [facility] (Lab) [address] [place], [address], 09/21/2022 20:32:07 09/21/19 23 09/21/2022 COMPR EHENS EDUAR METAB OLIC PANEL GFR >60 Refer ence Range : Emmet ge GFR Healt hy Adult : >60 [...] or ethni c subgr oups, such as [facility] nics. Outsi de the valid ated honorio [...] s/kdo qi/gf r_cal culat or Not Available [facility] (Lab) [address] [place], [address], 09/21/2022 20:32:07 09/21/19 23 09/21/2022 COMPR EHENS EDUAR METAB OLIC PANEL alkaline phosphatase 58 U/L 38-126 Not Available [facility] (Lab) [address] [place], [address], 09/21/2022 20:32:07 09/21/19 23 09/21/2022 COMPR EHENS EDUAR METAB OLIC PANEL alanine aminotransfe rase 49 U/L 0-50 Not Available [facility] (Lab) [address] [place], [address], 09/21/2022 20:32:07 09/21/19 23 09/21/2022 COMPR EHENS EDUAR METAB OLIC PANEL aspartate aminotransfe rase 35 U/L 15-46 Not Available [facility] (Lab) [address] [place], [address], 09/21/2022 20:32:07 09/21/19 23 09/21/2022 COMPR EHENS EDUAR METAB OLIC PANEL bilirubin, total 1.50 mg/dL 0.20-1 .30 high Not Available [facility] (Lab) [address] [place], [address], 09/21/2022 20:32:07 09/21/19 23 09/21/2022 COMPR EHENS EDURA METAB OLIC PANEL calcium 9.8 mg/dL 8.4-10 .2 Not Available [facility] (Lab) [address] [place], [address], 09/21/2022 20:32:07 09/21/19 23 09/21/2022 COMPR EHENS EDUAR METAB OLIC PANEL total protein 7.4 g/dL 6.3-8. 2 Not Available [facility] (Lab) [address] [place], [address], 09/21/2022 20:32:07 09/21/19 23 09/21/2022 COMPR EHENS EDUAR METAB OLIC PANEL albumin 4.6 g/dL 3.0-4. 4 high Not Available [facility] (Lab) [address] [place], [address], 09/21/2022 20:32:07 09/21/19 23 09/21/2022 COMPR EHENS EDUAR METAB OLIC PANEL globulin 2.8 g/dL 2.6-4. 2 Not Available [facility] (Lab) [address] [place], [address], 09/21/2022 20:32:07 09/21/19 23 09/21/2022 COMPR EHENS EDUAR METAB OLIC PANEL A/G ratio 1.6 ratio 1.0-2. 0 Not Available [facility] (Lab) [address] [place], [address], 09/21/2022 20:32:07 09/21/19 23 09/21/2022 LIPID PANEL cholesterol 175 mg/dL 140-19 9 NIH REFUGIO NSUS RECOM MENDA TION FOR KATHLEEN STERO L: ADULT CHILD LOW RISK: <200 <170 BORDE RLINE : <200- 239 ----- HIGH RISK: >240 >200 Not Available [facility] (Lab) [address] [place], [address], 09/21/2022 20:31:56 09/21/19 23 09/21/2022 LIPID PANEL triglyceride s 116 mg/dL 0-150 NIH REFUGIO NSUS REPOR T RECOM MENDA TION FOR TRIGL YCERI ANDERS: ADULT CHILD LOW RISK: <150 ----- BODER LINE: 150-1 99 ----- HIGH RISK: >200 ----- Not Available [facility] (Lab) [address] [place], [address], 09/21/2022 20:31:56 09/21/19 23 09/21/2022 LIPID PANEL HDL cholesterol 70 mg/dL 40- Not Available [facility] (Lab) [address] [place], [address], 09/21/2022 20:31:56 09/21/19 23 09/21/2022 LIPID PANEL [...] WILL NOT BE REPOR SHERRY. Not Available [facility] (Lab) [address] [place], [address], 09/21/2022 20:31:56 09/21/19 23 09/21/2022 CBC/C OMPLE TE BLD COUNT W/DIF F white blood cells 7.7 x10'3 /uL 4.2-10 .8 Not Available [facility] (Lab) [address] [place], [address], 09/21/2022 19:14:27 09/21/19 23 09/21/2022 CBC/C OMPLE TE BLD COUNT W/DIF F red blood cells 4.79 x10'6 /uL 4.10-5 .80 Not Available [facility] (Lab) [address] [place], [address], 09/21/2022 19:14:27 09/21/19 23 09/21/2022 CBC/C OMPLE TE BLD COUNT W/DIF F hemoglobin 15.1 g/dL 13.2-1 7.0 Not Available [facility] (Lab) [address] [place], [address], 09/21/2022 19:14:27 09/21/19 23 09/21/2022 CBC/C OMPLE TE BLD COUNT W/DIF F hematocrit 44.3 % 39.3-5 0.0 Not Available [facility] (Lab) [address] [place], [address], 09/21/2022 19:14:27 09/21/19 23 09/21/2022 CBC/C OMPLE TE BLD COUNT W/DIF F mean red cell volume 92.5 fL 80.0-9 7.0 Not Available [facility] (Lab) [address] [place], [address], 09/21/2022 19:14:27 09/21/19 23 09/21/2022 CBC/C OMPLE TE BLD COUNT W/DIF F mean red cell hemoglobin 31.5 pg 27.0-3 3.0 Not Available [facility] (Lab) [address] [place], [address], 09/21/2022 19:14:27 09/21/19 23 09/21/2022 CBC/C OMPLE TE BLD COUNT W/DIF F mean RBC HGB concentratio n 34.1 g/dL 31.0-3 6.0 Not Available [facility] (Lab) [address] [place], [address], 09/21/2022 19:14:27 09/21/19 23 09/21/2022 CBC/C OMPLE TE BLD COUNT W/DIF F red cell distribution width 13.2 % 11.8-1 5.5 Not Available [facility] (Lab) [address] [place], [address], 09/21/2022 19:14:27 09/21/19 23 09/21/2022 CBC/C OMPLE TE BLD COUNT W/DIF F platelets 247 x10'3 /uL 150-40 0 Not Available [facility] (Lab) [address] [place], [address], 09/21/2022 19:14:27 09/21/19 23 09/21/2022 CBC/C OMPLE TE BLD COUNT W/DIF F mean platelet volume 10.2 fL 9.0-12 .4 Not Available [facility] (Lab) [address] [place], [address], 09/21/2022 19:14:27 09/21/1909/21/2022 CBC/C OMPLE TE BLD COUNT W/DIF F neutrophils 44.4 % 39.0-7 2.0 Not Available [facility] (Lab) [address] [place], [address], 09/21/2022 19:14:27 09/21/1909/21/2022 CBC/C OMPLE TE BLD COUNT W/DIF F lymphocytes 36.3 % 16.0-4 7.0 Not Available [facility] (Lab) [address] [place], [address], 09/21/2022 19:14:27 09/21/1909/21/2022 CBC/C OMPLE TE BLD COUNT W/DIF F monocytes 10.4 % 5.0-12 .0 Not Available [facility] (Lab) [address] [place], [address], 09/21/2022 19:14:27 09/21/1909/21/2022 CBC/C OMPLE TE BLD COUNT W/DIF F eosinophils 7.1 % 1.0-7. 0 high Not Available [facility] (Lab) [address] [place], [address], 09/21/2022 19:14:27 09/21/1909/21/2022 CBC/C OMPLE TE BLD COUNT W/DIF F basophils 0.9 % 0.0-2. 0 Not Available [facility] (Lab) [address] [place], [address], 09/21/2022 19:14:27 09/21/1909/21/2022 CBC/C OMPLE TE BLD COUNT W/DIF F immature granulocytes 0.9 % 0.00-0 .50 high Not Available [facility] (Lab) [address] [place], [address], 09/21/2022 19:14:27 09/21/19 23 09/21/2022 CBC/C OMPLE TE BLD COUNT W/DIF F neutrophils, absolute count 3.43 x10'3 /uL 1.5-8. 0 Not Available [facility] (Lab) [address] [place], [address], 09/21/2022 19:14:27 09/21/1909/21/2022 CBC/C OMPLE TE BLD COUNT W/DIF F lymphocytes, absolute count 2.80 x10'3 /uL 1.07-3 .43 Not Available [facility] (Lab) [address] [place], [address], 09/21/2022 19:14:27 09/21/19 23 09/21/2022 CBC/C OMPLE TE BLD COUNT W/DIF F monocytes, absolute count 0.80 x10'3 /uL 0.29-0 .99 Not Available [facility] (Lab) [address] [place], [address], 09/21/2022 19:14:27 09/21/1909/21/2022 CBC/C OMPLE TE BLD COUNT W/DIF F eosinophils, absolute count 0.55 x10'3 /uL 0.02-0 .53 high Not Available [facility] (Lab) [address] [place], [address], 09/21/2022 19:14:27 09/21/1909/21/2022 CBC/C OMPLE TE BLD COUNT W/DIF F basophils, absolute count 0.07 x10'3 /uL 0.01-0 .08 Not Available [facility] (Lab) [address] [place], [address], 09/21/2022 19:14:27 09/21/19 23 09/21/2022 CBC/C OMPLE TE BLD COUNT W/DIF F immature granulocytes ,absolute 0.07 x10'3 /uL 0.00-0 .05 high Not Available [facility] (Lab) [address] [place], [address], 09/21/2022 19:14:27 09/21/19 23 09/21/2022 CBC/C OMPLE TE BLD COUNT W/DIF F nucleated red blood cells 0.0 % -0 Not Available [facility] (Lab) [address] [place], [address], 09/21/2022 19:14:27 09/21/19 23 09/21/2022 CBC/C OMPLE TE BLD COUNT W/DIF F NRBC# 0.00 x10'3 /uL Not Available [facility] (Lab) [address] [place], [address], 09/21/2022 19:14:27 10/09/19 XR, knee No observ ation record ed. [id number] [facility] [place] [address], [place], [address], 11/15/2022 05:21:49 01/05/20 23 01/04/2023 XR, knee No observ ation record ed. [email or web address] [facility] [address], [place], [address], 01/18/2023 14:20:25 01/05/20 23 01/04/2023 XR, knee, 3 view No observ ation record ed. [email or web address] [facility] [address], [place], [address], 01/05/2023 09:00:05 01/19/20 23 01/18/2023 US, duple x, venou s, lower extre mity No observ ation record ed. [email or web address] [facility] [address], [place], [address], 01/18/2023 16:11:43 01/19/20 23 01/18/2023 US, duple x, venou s, lower extre mity No observ ation record ed. [email or web address] [facility] [address], [place], [address], 07/28/2023 15:56:50 02/14/20 XR, knee No observ ation record ed. [email or web address] [facility] [place] [address], [place], [address], 02/13/2023 14:37:01 Result Notes None recorded. Problems Name Problem SNOMED Code Status Onset Date Resolution Date Notes Provider Name and Address Organization Details Recorded Time Body mass index 30+ - obesity 410633703 Active 2021 Not Available [facility] 3 07:05:53 Radiothera py follow-up 310643765 Active Not Available [facility] 3 07:05:53 Localized, primary osteoarthr itis of the pelvic region and thigh 725525379 Active Not Available [facility] 3 07:05:53 Anemia 067852391 Active 2016 Not Available [facility] 3 07:05:53 Osteoarthr itis of left knee joint 0796829680003 09 Active 2021 Not Available [facility] 3 07:05:53 Osteoarthr itis of right knee joint 8229316783693 00 Active 2021 Not Available [facility] 3 07:05:53 Obesity 849580905 Active 2022 Not Available [facility] 3 07:05:53 Pain of right knee joint 0081639153378 00 Active 2022 Not Available [facility] 3 07:05:53 Pain of left knee joint 4702344811428 07 Active 2021 Not Available [facility] 3 07:05:53 Pain of bilateral knee joints 4892940270232 04 Active 2021 Not Available [facility] 3 07:05:53 Hyperlipid emia 53988929 Active 2019 Not Available [facility] 3 07:05:54 Essential hypertensi on 31053551 Active 2016 Not Available [facility] 3 07:05:54 History of total hip arthroplas ty 751353950150 Active 2021 Not Available [facility] 3 07:05:54 Edema of lower extremity 381685029 Active 2022 Not Available [facility] 3 07:05:53 Problem Notes None recorded. Procedures Surgical History Date Name Laterality Status Provider Name and Address Organization Details Recorded Time 12/17/19 23 arthroplasty of right knee completed Silvia Chase RN [place] - [facility] 01/18/2023 11:16:10 02/06/20 19 Total hip arthroplasty completed Not Available [facility] 11/15/2022 05:05:22 01/11/20 17 Colonoscopy completed Not Available [facility] 11/16/19 23 05:05:22 Tonsillectomy completed Not Available [facility] 11/15/2022 05:05:22 repair of meniscus completed Not Available [facility] 11/15/2022 05:05:22 Imaging Results Imaging Date Name Status LastModified by Organiz ation Details LastModified Time 10/09/2022 XR, knee completed [id number] [facility] [place] [address], [place], [address], 11/15/2022 05:21:49 01/04/2023 XR, knee completed [email or web address] [place] [address] [address], [address], 01/18/2023 14:20:25 01/04/2023 XR, knee, 3 view [email or web address] [place] [address] [address], [address], 01/05/2023 09:00:05 01/18/2023 US, duplex, venous, lower extremity completed [email or web address] [place] [id number], [place], [address], 01/18/2023 16:11:43 01/18/2023 US, duplex, venous, lower extremity completed [email or web address] [facility] [address], [place], [address], 07/28/2023 15:56:50 02/13/2023 XR, knee completed [email or web address] [facility] [place] [address], [place], [address], 02/13/2023 14:37:01 Procedure Notes None recorded. Medical [...] administ ered by the provider 09/21 completed [facility]: [id number] 01-04 Not Available Not Available Not [...] Available Not Available Not Available Fluzone High-Dose [id number] (PF) 180 mcg/0.5 mL intramusc ular syringe [...] Updated DateTime 10/09/2022 38 kg/m2 182.88 cm 929302.86 g Not Available [facility] 11/15/2022 05:09:14 Date Recorded Body height Body mass index (BMI) Body weight Provider Name and Address Organization Details Last Updated DateTime 12/21/2022 182.88 cm 38.7 kg/m2 589987.83 g Leida Dc CNA [place] [facility] Commissioner 12/21/2022 10:50:53 Date Recorded Body height Body mass index (BMI) Body weight Provider Name and Address Organization Details Last Updated DateTime 01/16/2023 182.88 cm 38.7 kg/m2 096451.83 g JIMENEZ Arredondo 4-Tell [facility] Commissioner 01/16/2023 13:56:01 Date Recorded Body height Body mass index (BMI) Body weight Body temperature Heart rate Oxygen saturation Oxygen saturation in Arterial blood by Pulse oximetry Systolic blood pressure Diastolic blood pressure Provider Name and Address Organization Details Last Updated DateTime 182.88 cm 38.5 kg/m2 660206. 23 g 97.6 [degF] 81 /min 97 % 97 % 118 mm[Hg] 80 mm[Hg] Silvia Chase RN [place] [facility] Commissioner 11:19:05 Date Recorded Body height Provider Name an d Address Organization Details Last Updated DateTime 02/13/2023 182.88 cm Guerda Love [place] [facility] 02/13/2023 14:08:08 Social History Question Answer Notes LastModified by Organization Details LastModified Time Tobacco Smoking Status Former Smoker quit age 26 Not Available [facility] 11/15/2022 05:02:40 Do You Have An Advance Directive? No Information Provided To Patient MIGRATION.030 [id number] Information not available 11/15/2022 What Is Your Level Of Alcohol Consumption? Moderate 1 Glass Of Wine Per Day MIGRATION.030 [id number] Information not available 11/15/2022 Are You Blind Or Do You Have Difficulty Seeing? No MIGRATION.030 633956 Information not available 11/15/2022 What Is Your Level Of Caffeine Consumption? Moderate MIGRATION.030 041339 Information not available 11/15/2022 How Much Tobacco Do You Chew? None MIGRATION.030 474395 Information not available 11/15/2022 In The 14 Days Before Symptom Onset, Have You Had Close Contact With A Laboratory-conf irmed COVID-19 While That Case Was Ill? No MIGRATION.030 [id number] Information not available 11/15/2022 In The 14 Days Before Symptom Onset, Have You Had Close Contact With A Person Who Is Under Investigation For COVID-19 While That Person Was Ill? No MIGRATION.030 713134 Information not available 11/15/2022 Are You Deaf Or Do You Have Serious Difficulty Hearing? No MIGRATION.030 334903 Information not available 11/15/2022 What Type Of Diet Are You Following? REGULAR MIGRATION.030 493040 Information not available 11/15/2022 Which Illicit Or Recreational Drugs Have You Used? None MIGRATION.030 606868 Information not available 11/15/2022 Do You Or Have You Ever Used E-cigarettes Or Vape? Never Used Electronic Cigarettes MIGRATION.030 748711 Information not available 11/15/2022 What Is The Highest Grade Or Level Of School You Have Completed Or The Highest Degree You Have Received? 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 Yes MIGRATION.030 931207 Information not available 11/15/2022 What Is The Fluoride Status Of Your Home? Unknown MIGRATION.0301 668777 Information not available 11/15/2022 When Did You Quit Smoking? 17+yearssincelast cigarette MIGRATION.0301 201678 Information not available 11/15/2022 Are There Any Guns Present In Your Home? Yes MIGRATION.0301 503248 Information not available 11/15/2022 Do You Use Insect Repellent Routinely? No MIGRATION.0301 379675 Information not available 11/15/2022 Where Do You Live? [facility] MIGRATION.0301 389829 Information not available 11/15/2022 Do You Have A Medical Power Of Historical Manuscripts Curator? No MIGRATION.0301 625797 Information not available 11/15/2022 What Was The Date Of Your Most Recent Tobacco Screening? 01/18/2023 [email or web address] Information not available 01/18/2023 Have You Ever Been Counseled For Unhealthy Alcohol Use? No MIGRATION.0301 760079 Information not available 11/15/2022 Do You Have Any Pets? Yes MIGRATION.0301 996260 Information not available 11/15/2022 What Is Your Relationship Status? Domestic Partner MIGRATION.0301 [id number] Information not available 11/15/2022 Do You Use Your Seat Belt Or Car Seat Routinely? Yes MIGRATION.0301 118162 Information not available 11/15/2022 Do You Have Smoke And Carbon Monoxide Detectors In Your Home? Yes MIGRATION.0301 [id number] Information not available 11/15/2022 Are You Passively Exposed To Smoke? No MIGRATION.0301 021139 Information not available 11/15/2022 Do You Or Have You Ever Used Smokeless Tobacco? Never Used Smokeless Tobacco MIGRATION.0301 [id number] Information not available 11/15/2022 Are There Any Smokers In Your House? No MIGRATION.0301 931073 Information not available 11/15/2022 How Much Tobacco Do You Smoke? No MIGRATION.0301 111448 Information not available 11/15/2022 What Types Of Sporting Activities Do You Participate In? None MIGRATION.0301 514201 Information not available 11/15/2022 Do You Feel Stressed (tense, Restless, Nervous, Or Anxious, Or Unable To Sleep At Night)? [id number] MIGRATION.0301 972452 Information not available 11/15/2022 Do You Use Any Illicit Or Recreational Drugs? No MIGRATION.0301 693332 Information not available 11/15/2022 Do You Use Sunscreen Routinely? No MIGRATION.0301 [id number] Information not available 11/15/2022 Has Tobacco Cessation Counseling Been Provided? No MIGRATION.0301 257203 Information not available 11/15/2022 Have You Recently Traveled Abroad? No MIGRATION.0301 095732 Information not available 11/15/2022 Do You Have Any Dietary Restrictions? No MIGRATION.0301 910299 Information not available 11/15/2022 Do You Or Have You Ever Used Any Other Forms Of Tobacco Or Nicotine? Yes MIGRATION.0301 839126 Information not available 11/15/2022 Sex: Male Functional Status Question Answer Note LastModified by [employer] ion Details LastModified Time Do you have difficulty walking or climbing stairs? No MIGRATION.217771 9472 Information not available 11/15/2022 Do you have transportation difficulties? No MIGRATION.893559 2762 Information not available 11/15/2022 Are you able to walk? YESWOREST MIGRATION.533517 8030 Information not available 11/15/2022 Do you have difficulty doing errands alone? No MIGRATION.448411 2301 Information not available 11/15/2022 Are you able to care for yourself? Yes MIGRATION.997145 6472 Information not available 11/15/2022 Do you have difficulty dressing or bathing? No MIGRATION.111271 7610 Information not available 11/15/2022 What is your exercise level? None due to right knee pain MIGRATION.929748 2668 Information not available 11/15/2022 Mental Status Question Answer Note LastModified by Organizat ion Details LastModified Time Do you have difficulty concentrating, remembering or making decisions? No MIGRATION.[id number] 6 Information not available 11/15/2022 Family History Relationship Description Onset Age of this Age Resolved Age Notes LastModified by Organization Details LastModified Time Mother Alzheimer's disease deceas ed MIGRATION.008 [id number] Not available 11/15/2022 05:05:25 Father Heart disease deceas ed MIGRATION.808 [id number] Not available 11/15/2022 05:05:25 Sister Diabetes mellitus MIGRATION.845 [id number] Not available 11/15/2022 05:05:25 Brother Deep venous thrombosis MIGRATION.233 [id number] Not available 11/15/2022 05:05:25 Son Hypertensive disorder MIGRATION.339 [id number] Not available 11/15/2022 05:05:25 Medical History Condition Response NERVE DISEASE N BLINDNESS N RHEUMATIC FEVER N KIDNEY STONES N BLADDER PROBLEMS N MRSA N OTHER # 1 N POLIO N LUNG DISEASE/DISORDER N RADIATION / CHEMOTHERAPY N COPD N Other # 2 N BLOOD DISEASES N EAR OR HEARING PROBLEMS N MUMPS N BOWEL PROBLEMS N DEPRESSION (INCLUDING POST ) N STROKE/TIA N ULCERS N BENIGN PROSTATIC HYPERPLASIA N MEASLES N MYOCARDIAL INFARCTION N OBESITY N GERD/NAUSEA N ANEURYSM N URINARY/BLADDER/KIDNEY PROBLEMS N CORONARY ARTERY DISEASE (CAD) N ADDICTION CONCERNS N Impotence N ENDOMETRIOSIS N USE OF BLOOD THINNERS N SKIN [...] APNEA N CHICKENPOX N INFECTIOUS DISEASE N PROSTATE N HEART ARRHYTHMIA N INSOMNIA N HIGH CHOLESTEROL / HYPERLIPIDEMIA N EYE PROBLEMS N HYPERTHYROIDISM N EDEMA N CHRONIC PAIN SYNDROME N HYPOTHYROIDISM N CONSTIPATION N CAROTID BLOCKAGE N BACK / NECK PROBLEMS N HAVE YOU BEEN HOSPITALIZED OR SEEN IN [facility] IN THE PAST YEAR ? Y ATHEROSCLEROSIS N BREAST PROBLEMS N DIALYSIS N ECZEMA N OSTEOPOROSIS N ARTHRITIS Y APPENDICITIS N DIABETES, TYPE N BAD TEETH N ENT N HEARTBURN / REFLUX N AUTISM SPECTRUM DISORDER (ASD) N HEPATITIS / LIVER DISEASE N GOUT N SLEEP DISORDER N ALZHEIMER'S DISEASE N Brain Problems N DEMENTIA N HERPES N SEIZURES/EPILEPSY N HEADACHES/MIGRAINES N VASCULAR DISEASE N PACEMAKER N Blood Disorder N DIZZINESS N HEART DISEASE/HEART PROBLEMS N KIDNEY DISEASE N MULTIPLE SCLEROSIS N CANCER: SPECIFY N CARDIAC ARRHYTHMIA N ATRIAL FIBRILLATION N Gall Stones N PULMONARY EMBOLISM N AUTOIMMUNE DISEASE N Immunizations Vaccine Type Date Status Note Provider Nam e and Address Organization Details Recorded Time COVID-19, mRNA, LNP-S, PF, 30 mcg/0.3 mL dose 1 completed Not Available [facility] 04/01/2023 07:05:54 Influenza, high-dose, quadrivalent, PF 1 completed Not Available [facility] 04/01/2023 07:05:54 COVID-19, mRNA, LNP-S, PF, 30 mcg/0.3 mL dose 1 completed Not Available [facility] 04/01/2023 07:05:54 COVID-19, mRNA, LNP-S, PF, 30 mcg/0.3 mL dose 1 completed Not Available [facility] 04/01/2023 07:05:54 Influenza, high-dose, quadrivalent, PF 0 completed Not Available [facility] 04/01/2023 07:05:54 Influenza, split virus, quadrivalent, preservative 9 completed Not Available [facility] 04/01/2023 07:05:54 pneumococcal polysaccharide PPV23 9 completed Not Available [facility] 04/01/2023 07:05:54 Influenza, high-dose, trivalent, PF 8 completed Not Available [facility] 04/01/2023 07:05:54 Pneumococcal conjugate PCV 13 8 completed Not Available [facility] 04/01/2023 07:05:54 Influenza, high-dose, trivalent, PF 7 completed Not Available [facility] 04/01/2023 07:05:54 Tdap 6 completed Not Available [facility] 04/01/2023 07:05:54 influenza, unspecified formulation 2 completed Not Available [facility] 04/01/2023 07:05:54 Past Encounters Encounter ID Performer Location Encounter Start Date Encounter Closed Date Diagnosis/Indication Diagnosis SNOMED-CT Code Diagnosis ICD10 Code Diagnosis Note [id number] [facility] [place] [address] [place] [address] 03/08/2021 00:00:00 03/15/2021 22:19:23 [id number] [facility] [place] [address] [place] [address] 08/30/2021 00:00:00 08/30/2021 21:47:53 [id number] [facility] [place] [address] [facility] [address] [place] [address] 02/28/2022 00:00:00 02/28/2022 10:36:25 [id number] [facility] [address] [place] [address] 03/23/2022 00:00:00 03/23/2022 11:06:25 [id number] [facility] [address] [place] [address] 04/20/2022 00:00:00 04/20/2022 11:09:51 [id number] [facility] [address] [place] [address] 04/27/2022 00:00:00 04/27/2022 12:15:28 [id number] [facility] [address] [facility] [address] , [place] [address] 09/21/2022 00:00:00 10/08/2022 21:15:32 [id number] [facility] [address] [place] [address] 10/09/2022 00:00:00 10/09/2022 11:06:14 [id number] Fred Larsen MD [facility] [address] [place] [address] 12/21/2022 10:39:41 12/21/2022 12:28:30 Pain of bilateral knee joints [id number] 23401 M25.561 M25.562 Osteoarthr itis of right knee joint [id number] 68000 M17.11 Osteoarthr itis of left knee joint [id number] 04323 M17.12 [id number] Fred Larsen MD [facility] [address] [place] [address] 01/16/2023 13:52:39 01/16/2023 15:13:15 Pain of bilateral knee joints [id number] 93928 M25.561 M25.562 Osteoarthr itis of right knee joint 8254284050 56262 M17.11 Osteoarthr itis of left knee joint [id number] 32734 M17.12 History of right total knee replacement [id number] 343635 Z96.651 [id number] Moose Garcia MD [facility] [place] [address] [facility] [address], [place] [address] 01/18/2023 11:10:06 01/18/2023 12:33:22 Edema of lower extremity [id number] R60.0 [id number] Fred Larsen MD [facility] [address] [facility] [address] [place] [address] 02/13/2023 14:00:13 02/13/2023 14:55:34 Osteoarthritis of right knee joint [id number] 04158 M17.11 History of right total knee replacement [id number] 020567 Z96.651 Health Concerns Section Related Observation LastModified by Organization Detai ls LastModified Time None Recorded Concern Status LastModified by Organization Details LastModified Time None Recorded Advance Directives Directive N: Information provided to p atient Payers Encounter Date Sequence Insurance Name Policy Number Policy Gilliam Covered Member ID Gilliam Member ID Guarantor Name 12/21/2022 1 [facility] - MEDICARE COMPLETE CHOICE (MEDICARE REPLACEMENT PPO) [id number] [id number] [place] 01/16/2023 1 [facility] MEDICARE COMPLETE CHOICE (MEDICARE REPLACEMENT PPO) [id number] [id number] [place] 01/18/2023 1 [facility] - MEDICARE COMPLETE CHOICE (MEDICARE REPLACEMENT PPO) [id number] [place] [address] [id number] [place] 02/13/2023 1 [facility] - MEDICARE COMPLETE CHOICE (MEDICARE REPLACEMENT PPO) [id number] [id number] [place] Notes Date Note Type Note [...] 1st. Fred Larsen MD [address], [place], [address], [employer] 12/21/2022 11:25:26 01/16/2023 text/html Patient returns status post total knee arthroplasty right. His incision looks good he is walking well has very little in the way of pain. Fred Larsen MD [address], [place], [address], [employer] 01/16/2023 14:39:53 01/18/2023 text/html Had knee surgery little bit of swelling maybe a little bit more over the last couple of days without any chest pain or shortness of breath Moose Garcia MD [address], [place], [address], [employer] 01/20/2023 17:46:12 02/13/2023 text/html Patient returns status post total knee arthroplasty right. The pain for the most part is gone he has got excellent motion and walking well. He seems quite happy. Fred Larsen MD [address], [place], [address], [employer] 02/13/2023 14:37:31
[2024-12-15] MEDS: LACTATED RINGERS 1,000 ML 30 ML IV CONT ×2 (06:30→09:24)
[2024-12-15] MEDS: ACETAMINOPHEN 500 MG TABLET 1000 MG PO (06:41)
[2024-12-15] MEDS: VANCOMYCIN 2,000 MG/NS 500 ML BAG 250 MG IVPB (06:41)
--- NOTE | 2024-12-15 06:57 | WPDHPUPDATE1 ---
History and Physical Update Update Date/Time: 12/15/24 06:57 History and Physical has been reviewed, including an updated exam of the patient. There are NO changes in the patient's condition. Risks, benefits, and alternatives have been discussed and questions answered. Patient agrees to proceed with procedure.
[2024-12-15] MEDS: TRANEXAMIC ACID 1,000MG/ISO100 1,000 MG/100 ML BAG 200 MG IVPB (06:59)
--- NOTE | 2024-12-15 07:04 | P.PNAN_ITS ---
Anes - Initial Pre Proc Eval Procedure: Operation Date: 12/15/24 07:30 Proposed Procedures p Left Total Knee Arthroplasty - Fred Larsen MD Date/Time: 12/15/24 07:04 Surgeon: Fred Larsen MD Pre Op Diagnosis: oa left knee Patient Data Age: 79 Gender: M Height: 1.8 m Weight: 123.4 kg Last Vital Signs Temp 36.3 C L 12/15/24 06:10 Pulse 69 12/15/24 06:10 Resp 18 12/15/24 06:10 BP 117/69 12/15/24 06:10 Pulse Ox 100 12/15/24 06:10 O2 Del Method Room Air 12/15/24 06:10 Allergies Allergy/AdvReac Type Severity Reaction Status Date / Time No Known Allergies Allergy Verified 12/15/24 06:21 Home Medications ?Medication ?Instructions ?Recorded ?Confirmed ?Type Larginine 500 mg PO QAM 12/26/22 12/08/24 History amlodipine 5 mg tablet 5 mg PO HS 12/26/22 12/15/24 History ascorbic acid (vitamin C) 1,000 mg 1 g PO QAM 12/26/22 12/15/24 History tablet (Vitamin C) aspirin 81 mg tablet,delayed 81 mg PO QAM 12/26/22 12/15/24 History release atorvastatin 10 mg tablet 10 mg PO HS 12/26/22 12/15/24 History celecoxib 200 mg capsule 200 mg PO QAM 12/26/22 12/08/24 History cholecalciferol (vitamin D3) 25 25 mcg PO QAM 12/26/22 12/15/24 History mcg (1,000 unit) capsule coenzyme Q10 100 mg capsule 100 mg PO QAM 12/26/22 12/15/24 History (CoQ-10) ferrous sulfate 27 mg iron tablet 27 mg PO QAM 12/26/22 12/08/24 History metoprolol tartrate 25 mg tablet 25 mg PO BID 12/26/22 12/15/24 History rhblozafpnxb-abw-wjwni acid-vit 1 tablet PO QAM 12/26/22 12/15/24 History K-lycop 400 mcg-20 mcg-370 mcg tablet (Men's 50 Plus Multivitamin) nifedipine 60 mg tablet,extended 60 mg PO HS 12/26/22 12/15/24 History release vitamin B complex 1 cap PO QAM 12/26/22 12/15/24 History vitamin E 400 unit tablet 400 unit PO QAM 12/26/22 12/15/24 History hydralazine 25 mg tablet 25 mg PO BID 11/25/24 12/15/24 History Patient hx anesthesia problems: none Family hx anesthesia problems: none Results Review: All pre-operative results and documents have been reviewed as part of the pre- operative evaluation. [facility] Past Medical History Medical History (Updated 12/12/24 @ 19:25 by Alyssa Tee CRNA) Arthritis Hard of hearing Anemia Hypertension Hyperlipidemia Surgical History Surgical History History of tonsillectomy and adenoidectomy History of total hip replacement Left hip S/P total knee arthroplasty Family History Family History Father Heart disease Son Diabetes mellitus Mother Alzheimer's dementia Social History Social History (Updated 11/25/24 @ 10:50 by Vianca Vázquez [facility]) Social History: The patient is and he has 2 biological children and 1 stepchild. He is retired. He occasionally drinks a beer. Code status full code Years smoked: 5 Smoking status: Former smoker Tobacco type: cigarettes Second hand tobacco smoke exposure: No Smoking end date: 09/17/70 Additional smoking assessment comments: PT DENIES ALL FORMS OF TOBACCO USE Alcohol intake: former Drinks per week: 4 Substance use: never Substance use type: does not use Do You Feel Safe in your Home?: Yes Lack of Transportation: No Lack of Food: Never True Current Housing: I Have Housing Concerned About Future Housing: No Difficulty Paying Gas/Electric Bills: No Difficulty Paying for Meds: No Currently Unemployed: No Education: High School Diploma/GED Difficulty w/ Childcare or Family Care: No Living arrangements: with friend(s) Additional living arrangements comments: Spiritual care concerns: No Anes - Eval Final PreProcedure Day of Procedure 12/15/24 07:04 Patient weight: obese Heart: regular rate and rhythm Lungs: clear to auscultation Airway: Mallampati scale class III Neurological: alert and oriented Last oral intake: >/= 8 hours ASA classification: III Emergent: no Anesthetic plan: proceed Anesthesia type and monitoring: general LMA and standard monitoring Results Review: All pre-operative results and documents have been reviewed as part of the pre- operative evaluation. Informed Consent: The patient's anesthetic plan and its attendant risks and benefits were discussed with the patient/family/POA. Questions were solicited and answers provided to the satisfaction of the patient/family/POA.
[2024-12-15] MEDS: ceFAZolin 3 GM/D5W 100 ML 100 ML IVPB (07:26)
--- NOTE | 2024-12-15 07:30 | WPDANESPNB ---
Anes - Peripheral Nerve Block Date/Time: 12/15/24 07:30 I have discussed with the patient/family/POA the placement of a peripheral nerve block for post-operative pain management, including associated risks, benefits, complications, and side effects. Alternative methods of post-operative analgesia were detailed. Questions were solicited and answers provided to the satisfaction of the patient/family/POA. Time-Out: A pre-procedural Time-Out was completed immediately before starting the procedure and confirmed: Patient Identification, Site, Procedure, Patient Position and the Availability of Requisite Equipment. Clinical Indications: Acute post-operative pain management requested by the operative surgeon. Nerve Block Insertion Note Anes-nerve block: adductor canal left Patient position: supine Skin prep: chlorhexidine Needle: 22 gauge, stimulating, insulated echogenic needle. Needle length: 80 mm Technique: ultrasound Injectate: bupivacaine 0.5% with epi 5 mcg/ml (30cc - no epi) Observations: tolerated well Complications: none Procedure start time:: 718 Procedure end time:: 721
[2024-12-15] MEDS: SODIUM CHLORIDE 0.9% IV 37.7 ML, MORPHINE SULFATE INJ (*CRX) 2 MG, ROPivacaine HCL 1% 2... INFILTRATE (07:55)
[2024-12-15] MEDS: GENTAMICIN BONE CEMENT REFOBACIN 1 EACH TOPICAL (08:26)
[2024-12-15] MEDS: TRANEXAMIC ACID 1,000 MG/10 ML AMPUL 1000 MG IV PUSH (08:37)
--- NOTE | 2024-12-15 08:55 | P.OP_ITS ---
Procedure Note - Detailed Date of Procedure 12/15/24 Pre-op Diagnosis Osteoarthritis left knee Post-op Diagnosis Same Procedure Performed LEFT Total Knee arthroplasty Surgeon Fred Larsen MD Anesthesia General Indications Pain and Arthritis Description of Procedure The patient was brought to operating room #8. A general anesthetic was administered. Placed on the operating table and sterilely prepped and draped in usual manner. A longitudinal incision was made. Tourniquet inflated to 300 mmHg for a total of 48 minutes. Dissection was carried down to the fascia. Medial parapatellar incision was made and the patella subluxated laterally. P atella cut from 27 to 17 mm. The tibia was cut perpendicular to the long axis and femur cut in 5 degrees of valgus. The components were trialed and the knee was noted to be stable with excellent motion. The soft tissues balanced, hemostasis obtained. All [address], 79 tibia, 72.5 femur, 37 mm patella, and 12AS mm poly. Motion was 0-125 degrees with good stability in both flexion and extension. The wound was closed with #2 Vicryl, 2- 0 Vicryl and mesha. [employer] Estimated Blood Loss 200 Drains No Packing No Pathology None sent Complications No immediate complications Condition Stable Disposition PACU [facility] Billing Surgery - Charge Forward: Surgery Billing ([id number] Total Knee)
[2024-12-15] MEDS: fentaNYL CITRATE INJ (*CRX) 100 MCG/2 ML VIAL 25 MCG IV PUSH ×4 (09:41→09:53)
--- NOTE | 2024-12-15 10:49 | ADMGEN ---
This patient, [place], was admitted to Medical Room 253-01. Patient/family oriented to hospital policies and general routines including ID bracelet, bed and alarms, visiting hours, pain management, procedures, bathroom and other care routines, personal items, smoking policy, room service/diet, and visiting hours. Information on how to activate the Rapid Response Team has been discussed. Patient/Family are encouraged to report perceived risks to care and to ask questions if they do not understand what they are told or what they should do.
[2024-12-15] MEDS: HYDROcodone/acetaminophen (*CRX) 7.5-325 MG TABLET 1 TAB PO (11:06)
[2024-12-15] MEDS: ASPIRIN 81 MG ENTERIC TABLET PO (11:06)
[2024-12-15] MEDS: ceFAZolin 2 GM/D5W 50 ML 2 GM/50 ML BAG IVPB ×2 (15:41→23:40)
[2024-12-15] MEDS: hydrALAZINE HCL 25 MG TABLET PO (17:08)
[2024-12-15] MEDS: CELECOXIB 200 MG CAPSULE PO (17:08)
[2024-12-15] MEDS: RIVAROXABAN 10 MG TABLET PO (17:08)
[2024-12-15] MEDS: SENNA/DOCUSATE SODIUM TABLET 2 TAB PO (17:09)
[2024-12-15] MEDS: METOPROLOL TARTRATE 25 MG TABLET PO (20:23)
[2024-12-15] MEDS: ATORVASTATIN 10 MG TABLET PO (20:24)
[2024-12-15] MEDS: amLODIPine BESYLATE 5 MG TABLET PO (20:24)
[2024-12-15] MEDS: NIFEdipine 30 MG TAB.ER.24 60 MG PO (20:24)
--- NOTE | 2024-12-15 21:50 | P.CONIM_ITS ---
Assessment and Plan Assessment and plan (1) Osteoarthritis of left knee: Code(s): M17.12 - Unilateral primary osteoarthritis, left knee Status: Acute Assessment and Plan: Postoperative day 0 status post left total knee arthroplasty. Wound care, pain control, DVT prophylaxis deferred to primary service. Check baseline labs in a.m. PT/OT consulted. (2) Hypertension: Code(s): I10 - Essential (primary) hypertension Status: Acute Assessment and Plan: Blood pressures were reviewed and they have been stable postoperatively. Resume antihypertensives and continue to monitor. (3) Hyperlipidemia: Code(s): E78.5 - Hyperlipidemia, unspecified Status: Acute Assessment and Plan: Resume statin check LFTs in a.m. Plan Thank you for allowing us to participate in this patient's care. Please do not hesitate to contact us with any questions. HPI Date of Consult Consult date: 12/15/24 Requesting Physician: Fred Larsen MD Primary Care Provider: Yoshi Garcia, Consult Narrative Reason for consult: Medical management. Narrative: This is a very pleasant 79-year-old male with osteoarthritis, hypertension, and hyperlipidemia whom the hospitalist service has been consulted for help managing his medical conditions postoperatively. He presented to the hospital today for elective left total knee arthroplasty due to ongoing pain despite conservative outpatient treatment. His surgery was performed under general anesthesia with no immediate complications documented and an estimated blood loss of 200 mL. Postoperatively his pain is well controlled; he apparently received a nerve block prior to the procedure. He has been up to the bathroom and is able to walk without much discomfort or help. He has not had any problems urinating. He denies fever, chills, chest pain, shortness a breath, nausea, and vomiting. He also denies paresthesias, skin color, and temperature changes distal to the surgical site. Regarding his chronic medical conditions, he believes as hypertension and hyperlipidemia are well controlled on home medications. No history of venous thromboembolism. On discharge he will go home or his will help take care of him until he recuperates. Review of Systems Review of Systems: 12 systems were reviewed and are negativ e except for as per HPI. [facility] Past Medical History Medical History Arthritis Hard of hearing Anemia Hypertension Hyperlipidemia Surgical History Surgical History (Updated 12/15/24 @ 21:52 by Sheridan Cardenas PA-C) History of arthroplasty of left knee (12/15/24) History of total right hip arthroplasty History of left hip replacement History of tonsillectomy and adenoidectomy Family History Family History Father Heart disease Son Diabetes mellitus Mother Alzheimer's dementia Social History Social History (Updated 12/15/24 @ 21:53 by Sheridan Cardenas PA-C) Social History: Surrogate medical decision maker: Susanna Church, spouse. Code status: Smoking packs per day: 1 Smoking cigarettes per day: 20.0 Years smoked: 5 Smoking pack-years: 5.00 Smoking status: Former smoker Second hand tobacco smoke exposure: No Alcohol intake: former Drinks per week: 4 Alcohol use details: not in a year, was few drinks few times a week Substance use: never Substance use type: does not use Do You Feel Safe in your Home?: Yes Lack of Transportation: No Lack of Food: Never True Current Housing: I Have Housing Concerned About Future Housing: No Difficulty Paying Gas/Electric Bills: No Difficulty Paying for Meds: No Currently Unemployed: No Education: High School Diploma/GED Difficulty w/ Childcare or Family Care: No Additional living arrangements comments: The patient is and he has 2 biological children and 1 stepchild. Additional occupation/education comments: Retired. Spiritual care concerns: No Meds Home Medications and Allergies Home Medications ?Medication ?Instructions ?Recorded ?Confirmed ?Type Larginine 500 mg PO QAM 12/26/22 12/08/24 History amlodipine 5 mg tablet 5 mg PO 12/26/22 12/15/24 History ascorbic acid (vitamin C) 1,000 mg 1 g PO QAM 12/26/22 12/15/24 History tablet (Vitamin C) aspirin 81 mg tablet,delayed 81 mg PO QAM 12/26/22 12/15/24 History release atorvastatin 10 mg tablet 10 mg PO 12/26/22 12/15/24 History celecoxib 200 mg capsule 200 mg PO QAM 12/26/22 12/08/24 History cholecalciferol (vitamin D3) 25 25 mcg PO [facility] 12/26/22 12/15/24 History mcg (1,000 unit) capsule coenzyme Q10 100 mg capsule 100 mg PO QAM 12/26/22 12/15/24 History (CoQ-10) ferrous sulfate 27 mg iron tablet 27 mg PO QA 12/26/22 12/08/24 History metoprolol tartrate 25 mg tablet 25 mg PO BID 12/26/22 12/15/24 History lpbqyusroczv-pkm-gbnud acid-vit 1 tablet PO QAM 12/26/22 12/15/24 History K-lycop 400 mcg-20 mcg-370 mcg tablet (Men's 50 Plus Multivitamin) nifedipine 60 mg tablet,extended 60 mg PO 12/26/22 12/15/24 History release vitamin B complex 1 cap PO QAM 12/26/22 12/15/24 History vitamin E 400 unit tablet 400 unit PO QA 12/26/22 12/15/24 History hydralazine 25 mg tablet 25 mg PO BID 11/25/24 12/15/24 History Allergies Allergy/AdvReac Type Severity Reaction Status Date / Time No Known Allergies Allergy Verified 12/15/24 06:21 Vital Signs Vital Signs - 24 hr 12/15/24 06:10 12/15/24 09:24 12/15/24 09:39 Temperature 97.4 F L 97.3 F L Pulse Rate 69 74 69 Respiratory Rate 18 17 13 Blood Pressure 117/69 124/71 120/68 Pulse Oximetry 100 99 100 Oxygen Delivery Room Air Simple Face Mask Simple Face Mask Oxygen Flow Rate 8 8 12/15/24 09:54 12/15/24 10:09 12/15/24 10:25 Temperature Pulse Rate 72 67 67 Respiratory Rate 15 12 12 Blood Pressure 125/69 120/71 122/72 Pulse Oximetry 98 100 96 Oxygen Delivery Room Air Room Air Room Air Oxygen Flow Rate 12/15/24 10:45 12/15/24 11:00 12/15/24 11:08 Temperature 97.1 F L 97.1 F L Pulse Rate 68 72 68 Respiratory Rate 16 16 16 Blood Pressure 157/73 H 121/68 Pulse Oximetry 98 98 98 Oxygen Delivery Room Air Oxygen Flow Rate 12/15/24 11:16 12/15/24 11:29 12/15/24 12:12 Temperature 97.5 F L 97.6 F Pulse Rate 69 68 Respiratory Rate 16 16 Blood Pressure 127/64 108/69 Pulse Oximetry 98 99 Oxygen Delivery Room Air Oxygen Flow Rate 12/15/24 13:18 12/15/24 17:06 12/15/24 20:13 Temperature 98.1 F 98.9 F Pulse Rate 74 76 Respiratory Rate 16 18 Blood Pressure 129/72 139/80 Pulse Oximetry 98 99 Oxygen Delivery Room Air Oxygen Flow Rate 12/15/24 20:23 Temperature Pulse Rate 78 Respiratory Rate Blood Pressure Pulse Oximetry Oxygen Delivery Oxygen Flow Rate Exam Narrative: General: Well-developed, nontoxic-appearing gentleman sitting up in bed watching television no distress. Weight: 123.4 kg. BMI: 37.9. HEENT: PERRL, EOMI. Sclera anicteric. Oral mucosa moist. Oropharynx clear. Neck: Supple. Respiratory: Lungs are clear to auscultation bilaterally. Cardiovascular: Regular rate and rhythm with S1-S2. Gastrointestinal: Abdomen is soft, nontender, and nondistended with positive bowel sounds. Skin: Warm and dry. No rash or lesions on limited exam. Extremities: No cyanosis, clubbing, or edema. Radial and pedal pulses intact. Musculoskeletal: Left knee dressing is clean, dry, and intact. He is neurovascularly intact distal to the surgical site. Neurological: Alert. Cranial nerves 2-12 grossly intact. No gross focal deficits to casual conversation. Psychiatric: Pleasant and cooperative with normal mood and affect. Judgment and insight intact. Hospitalist MIPS Advance Care Plan I have confirmed that the patient's Advanced Care Plan is present, code status is documented, or surrogate decision maker is listed in patient medical record.: Yes Medication Reconciliation The patient is not eligible for med reconciliation; the patient is in a emergent medical situation where delaying treatment would jeopardize the patients health.: Yes
[2024-12-16 00:13] VITALS: BP 160/64; PULSE 74; RESP 18; TEMP 36.8; O2SAT 95
[2024-12-16 04:30] VITALS: BP 117/63; PULSE 76; RESP 16; TEMP 36.4; O2SAT 98
[2024-12-16 05:22] LABS: Basophils Percent Auto 0.3 % (0.2-1.2); Eosinophils Percent Auto 0.2 % (0-4.4); Hematocrit 34.6 % (42.0-52.0); Hemoglobin 11.3 g/dL (14.0-18.0); Immature Granulocyte Absolute 0.05 K/mm3 (0.00-0.031); Immature Granulocyte Percent A 0.4 % (0-0.5); Lymphocytes Absolute Auto 1.77 K/mm3 (0.9-3.2); Lymphocytes Percent Auto 15.6 % (18.3-44.2); Mean Corpuscular HGB Conc 32.7 g/dl (32-36); Mean Corpuscular Hemoglobin 29.7 pg (26-34); Mean Corpuscular Volume 91.1 fl (80-100); Mean Platelet Volume 10.1 fl (7.4-10.4); Monocytes Absolute Auto 1.3 K/mm3 (0.1-0.6); Monocytes Percent Auto 11.3 % (2.6-8.5); Neutrophils Absolute Auto 8.2 K/mm3 (1.3-6.7); Neutrophils Percent Auto 72.2 % (45.5-73.1); Platelet Count Result 196 k/mm3 (150-375); Red Cell Distribution Width 14.1 % (11.5-14.5); White Blood Count 11.3 K/mm3 (4.5-10.0)
[2024-12-16 05:34] LABS: Alanine Aminotransferase 29 U/L (6-50); Albumin Level 3.6 g/dL (3.5-5.1); Alkaline Phosphatase 46 U/L (38-126); Anion Gap 7 mmol/L (4-12); Aspartate Amino Transferase 24 U/L (17-59); Bilirubin,Total 0.9 mg/dL (0.2-1.3); Blood Urea Nitrogen 17 mg/dL (9-20); Carbon Dioxide 24 mmol/L (22-30); Chloride 104 mmol/L (98-107); Estimated CRCL calculation 69 ml/min; Estimated Glomerular Filt Rate > 60; Glucose 118 mg/dL (65-110); Magnesium 1.8 mg/dL (1.6-2.3); Sodium 135 mmol/L (137-145)
[2024-12-16] MEDS: ceFAZolin 2 GM/D5W 50 ML 2 GM/50 ML BAG IVPB (06:55)
--- NOTE | 2024-12-16 07:06 | PM.PNORT ---
Progress Note: A&P Assessment and Plan (1) History of knee replacement procedure of left knee: Code(s): Z96.652 - Presence of left artificial knee joint Status: Acute Assessment and Plan: Patient underwent total knee arthroplasty left for osteoarthritis. He has done well postoperatively and can be dismissed home at this time. If he has any changes or problems he will call. Dismissed medication [place] Xarelto and doxycycline. Subjective Subjective Date/Time Seen: 12/16/24 07:06 Post Op day: 1 Principal diagnosis: Left total knee arthroplasty for osteoarthritis Review of Systems Musculoskeletal: Musculoskeletal: Reports arthralgias, Reports joint swelling and Reports stiffness Neurologic: Reports abnormal gait Exam Narrative: Patient is able to wiggle his toes. He is walking with a walker. The dressing is intact. Objective Data Vital Signs Vital Signs: Vital Signs - 24 hr 12/15/24 09:24 12/15/24 09:39 12/15/24 09:54 Temperature 97.3 F L Pulse Rate 74 69 72 Respiratory Rate 17 13 15 Blood Pressure 124/71 120/68 125/69 Pulse Oximetry 99 100 98 Oxygen Delivery Simple Face Mask Simple Face Mask Room Air Oxygen Flow Rate 8 8 12/15/24 10:09 12/15/24 10:25 12/15/24 10:45 Temperature 97.1 F L Pulse Rate 67 67 68 Respiratory Rate 12 12 16 Blood Pressure 120/71 122/72 157/73 H Pulse Oximetry 100 96 98 Oxygen Delivery Room Air Room Air Oxygen Flow Rate 12/15/24 11:00 12/15/24 11:08 12/15/24 11:16 Temperature 97.1 F L 97.5 F L Pulse Rate 72 68 69 Respiratory Rate 16 16 16 Blood Pressure 121/68 127/64 Pulse Oximetry 98 98 98 Oxygen Delivery Room Air Oxygen Flow Rate 12/15/24 11:29 12/15/24 12:12 12/15/24 13:18 Temperature 97.6 F Pulse Rate 68 Respiratory Rate 16 Blood Pressure 108/69 Pulse Oximetry 99 Oxygen Delivery Room Air Room Air Oxygen Flow Rate 12/15/24 17:06 12/15/24 20:13 12/15/24 20:23 Temperature 98.1 F 98.9 F Pulse Rate 74 76 78 Respiratory Rate 16 18 Blood Pressure 129/72 139/80 Pulse Oximetry 98 99 Oxygen Delivery Oxygen Flow Rate 12/16/24 00:13 12/16/24 04:30 Temperature 98.2 F 97.6 F Pulse Rate 74 76 Respiratory Rate 18 16 Blood Pressure 160/64 H 117/63 Pulse Oximetry 95 98 Oxygen Delivery Oxygen Flow Rate Intake/Output Intake/Output: Intake & Output 12/13/24 12/14/24 12/15/24 12/16/24 23:59 23:59 23:59 23:59 Intake Total 1979 350 Balance 1979 350 Meds/Results Medications: Active Medications Generic Name Dose Route Start Last Admin Trade Name Freq PRN Reason Stop Dose Admin Hydrocodone Bitart/Acetaminophen 1 tab 12/15/24 10:28 Hydrocodone/Acetaminophen (*Crx) 5-325 Mg Tablet PO Q4H PRN Pain Rated 4-6 Hydrocodone Bitart/Acetaminophen 1 tab 12/15/24 10:28 12/15/24 11:06 Hydrocodone/Acetaminophen (*Crx) 7.5-325 Mg Tablet PO 1 tab Q4H PRN Administration Pain Rated 7-10 Amlodipine Besylate 5 mg 12/15/24 21:00 12/15/24 20:24 Amlodipine Besylate 5 Mg Tablet PO 5 mg HS ROMULO Administration Aspirin 81 mg 12/15/24 10:28 12/15/24 11:06 Aspirin 81 Mg Enteric Tablet PO 81 mg QAM ROMULO Administration Atorvastatin Calcium 10 mg 12/15/24 21:00 12/15/24 20:24 Atorvastatin 10 Mg Tablet PO 10 mg HS ROMUOL Administration Celecoxib 200 mg 12/15/24 17:00 12/15/24 17:08 Celecoxib 200 Mg Capsule PO 200 mg BIDWM ROMULO Administration Diphenhydramine HCl 25 mg 12/15/24 10:28 Diphenhydramine Hcl Inj 50 Mg/Ml Vial IV PUSH Q6H PRN Itching Hydralazine HCl 25 mg 12/15/24 10:28 12/15/24 17:08 Hydralazine Hcl 25 Mg Tablet PO 25 mg BID ROMULO Administration Hydromorphone HCl 1 mg 12/15/24 10:28 Hydromorphone Hcl Inj (*Crx) 1 Mg/Ml Syr IV PUSH Q2H PRN Breakthrough Pain Rated 7-10 or NPO Hydromorphone HCl 0.5 mg 12/15/24 10:28 Hydromorphone Hcl Inj (*Crx) 1 Mg/Ml Syr IV PUSH Q2H PRN Breakthrough Pain Rated 4-6 or NPO Cefazolin Sodium 2 gm in 50 mls @ 100 mls/hr 12/15/24 15:30 12/16/24 06:55 Ancef 2 Gm/D5w 50 Ml IVPB 12/16/24 07:59 100 mls/hr Q8H ROMULO Administration Ibuprofen 800 mg in 200 mls @ 400 mls/hr 12/15/24 10:28 Caldolor 800 Mg/200 Ml IVPB Q6H PRN Breakthrough Pain Rated 1-3 or NPO Metoprolol Tartrate 25 mg 12/15/24 21:00 12/15/24 20:23 Metoprolol Tartrate 25 Mg Tablet PO 25 mg Q12HR ROMULO Administration Naloxone HCl 0.1 mg 12/15/24 10:28 Naloxone Hcl 0.4 Mg/Ml Vial IV PUSH Q2M PRN Opiate Reversal Nifedipine 60 mg 12/15/24 21:00 12/15/24 20:24 Nifedipine 30 Mg Tab.Er.24 PO 60 mg HS ROMUOL Administration Ondansetron HCl 4 mg 12/15/24 10:28 Ondansetron Inj 4 Mg/2 Ml Vial IV PUSH Q4H PRN Nausea And Vomiting Polyethylene Glycol 17 gm 12/16/24 09:00 Polyethylene Glycol 3350 17 Gm Powd.Pack PO QAM [facility] Rivaroxaban 10 mg 12/15/24 17:00 12/15/24 17:08 Rivaroxaban 10 Mg Tablet PO 12/26/24 17:01 10 mg DAILY@17 ROMULO Administration Senna/Docusate Sodium 2 tab 12/15/24 17:00 12/15/24 17:09 Senna/Docusate Sodium Tablet PO 2 tab BID ROMULO Administration Tramadol HCl 50 mg 12/15/24 10:28 Tramadol Hcl (*Crx) 50 Mg Tablet PO Q4H PRN Pain Rated 1-3 Radiology Results: ITS Impressions Knee X-Ray 12/15/24 09:44 IMPRESSION: 1. Left total knee arthroplasty, negative for postoperative purposes. Labs Labs: Laboratory Results - last 24 hr 12/16/24 04:56 WBC 11.3 H RBC 3.80 L Hgb 11.3 L Hct 34.6 L MCV 91.1 MCH 29.7 MCHC 32.7 RDW 14.1 Plt Count 196 MPV 10.1 Immature Gran % (Auto) 0.4 Neut % (Auto) 72.2 Lymph % (Auto) 15.6 L [place] % (Auto) 11.3 H Eos % (Auto) 0.2 Baso % (Auto) 0.3 Lymph # (Auto) 1.77 [place] # (Auto) 1.3 H Eos # (Auto) 0.0 Baso # (Auto) 0.0 Abs Immat Gran (auto) 0.05 H Absolute Neuts (auto) 8.2 H Absolute Nucleated RBC 0.000 Nucleated RBC % 0.0 Sodium 135 L Potassium 4.0 Chloride 104 Carbon Dioxide 24 Anion Gap 7 BUN 17 Creatinine 1.04 Estim Creat Clear Calc 69 Estimated GFR > 60 Glucose 118 H Calcium 9.0 Magnesium 1.8 Total Bilirubin 0.9 Direct Bilirubin 0.0 AST 24 ALT 29 Alkaline Phosphatase 46 Total Protein 6.0 L Albumin 3.6
[2024-12-16 08:40] VITALS: BP 123/58; PULSE 85; RESP 16; TEMP 36.9; O2SAT 98
[2024-12-16 08:41] VITALS: PULSE 83; RESP 16; O2SAT 98
[2024-12-16] MEDS: CELECOXIB 200 MG CAPSULE PO (08:41)
[2024-12-16] MEDS: SENNA/DOCUSATE SODIUM TABLET 2 TAB PO (08:41)
[2024-12-16] MEDS: hydrALAZINE HCL 25 MG TABLET PO (08:41)
[2024-12-16] MEDS: ASPIRIN 81 MG ENTERIC TABLET PO (08:41)
[2024-12-16] MEDS: polyethylene glycoL 3350 17 GM POWD.PACK PO (08:41)
[2024-12-16] MEDS: METOPROLOL TARTRATE 25 MG TABLET PO (08:41)
[2024-12-16] MEDS: HYDROcodone/acetaminophen (*CRX) 5-325 MG TABLET 1 TAB PO (08:42)
== END 2024-12-16 12:15 | disposition home or self-care (01) ==
LOC: ANHSURGERY 06:03 → ANH2MED 10:33
PROVIDERS: Orthopaedic Surgery; Physician Assistant; PCP Internal Medicine; Visit Provider Physician Assistant
PROC: (CPT 27447; principal; 2024-12-15 07:30)
DX: M17.12 Unilateral primary osteoarthritis, left knee (principal); G89.18 Other acute postprocedural pain; D64.9 Anemia, unspecified; I10 Essential (primary) hypertension; E78.5 Hyperlipidemia, unspecified; E66.9 Obesity, unspecified; Z68.37 Body mass index [BMI] 37.0-37.9, adult; Z79.82 Long term (current) use of aspirin; Z79.1 Long term (current) use of non-steroidal anti-inflammatories (NSAID); Z98.890 Other specified postprocedural states; Z96.651 Presence of right artificial knee joint; Z87.891 Personal history of nicotine dependence; Z82.49 Family history of ischemic heart disease and other diseases of the circulatory system
CPT/HCPCS: 64447; 27447; 36415; 73560; 80048; 80076; 83735; 85025; 97110; 97161; 97165; 97530; 97535; A9270; C1713; C1773; C1776; J0171; J0690; J1100; J1885; J2250; J2270; J2405; J2704; J2795; J3010; J3370; J7120

== ENCOUNTER 2024-12-22 12:28 | Outpatient (CLI) | payer MEDICARE, SELFPAY ==
--- NOTE | ~2024-12-22 | US_ITS ---
EXAMINATION: US venous doppler [facility] DATE: 12/22/2024 13:19 INDICATION: Left lower limb pain and swelling TECHNIQUE: Grayscale ultrasound images without and with compression and Doppler ultrasound images of the left lower extremity veins were obtained. COMPARISON: None. FINDINGS: The visualized portions of left common femoral vein, profunda (deep) femoral vein, femoral vein, popl iteal vein, peroneal veins, posterior tibial veins, gastrocnemius vein and greater saphenous vein out flow are patent. 8.2 x 3.9 x 1.7 cm anechoic Aceves's cyst with typical configuration at the popliteal fossa. IMPRESSION: 1. No deep venous thrombosis in the left lower limb. 2. Large Aceves's cyst at the left popliteal fossa. Reviewed, dictated and finalized at location A.
--- OUTSIDE RECORDS SUMMARY | 2024-12-22 14:06 | XMS_ITS | Data Portability ---
Author Organization [place] - [facility], Main Office Address [address] [place] [address] Care Team Providers Care Regulated Program Manager Name Role Phone MOOSE GARCIA Primary Care [...] Discussed risks benefits limitations and alternatives again. [email or web address] Not available 12/21/2022 11:25:22 01/16/2023 01/16/2023 Patient [...] about 3-4 weeks for postop x-rays discussed. [email or web address] Not available 01/16/2023 14:37:44 01/18/2023 01/18/2023 Will get a venous duplex just to be safe see me in 2 months otherwise continue current therapy [email or web address] Not available 01/20/2023 17:45:55 02/13/2023 02/13/2023 Patient [...] XR, knee 2022 023 [email or web address] [facility] [place], [address], [place], [address], 14:55:34 US, duplex, venous, lower extremity - STAT HOLD AND CALL WITH RESULTS 2022 023 [facility], [address], [place], [address], 15:44:22 Medication Orders None recorded. Patient TargetsNo targets recorded. Patient InstructionsNo instructions recorded. Reason for Referral None Reported. Results Created Date Observation Date Name Description Value Unit Range Abnormal Flag Note LastModifiedBy Organization Detail LastModifiedTime 09/21/1909/21/2022 TSH thyroid-stim ulating hormone 4.050 uIU/m L 0.465- 4.680 Not Available [facility] (Lab) [address] [place], [address], 09/21/2022 20:41:13 09/21/19 23 09/21/2022 T3 FREE free T3 3.8 pg/mL 2.77-5 .27 Not Available [facility] (Lab) [address] [place], [address], 09/21/2022 20:32:44 09/21/19 23 09/21/2022 T4 FREE free T4 0.81 NG/dL 0.78-2 .19 Not Available [facility] (Lab) [address] [place], [address], 09/21/2022 20:32:42 09/21/19 23 09/21/2022 COMPR EHENS EDUAR METAB OLIC PANEL sodium 139 mmol/ L 137-14 5 Not Available [facility] (Lab) [address] [facility] [place], [address], 09/21/2022 20:32:07 09/21/19 23 09/21/2022 COMPR EHENS EDUAR METAB OLIC PANEL potassium 4.4 mmol/ L 3.5-5. 1 Not Available [facility] (Lab) [address] [facility] [place], [address], 09/21/2022 20:32:07 09/21/19 23 09/21/2022 COMPR EHENS EDUAR METAB OLIC PANEL chloride 101 mmol/ L 98-107 Not Available [facility] (Lab) [address] [place], [address], 09/21/2022 20:32:07 09/21/19 23 09/21/2022 COMPR EHENS EDUAR METAB OLIC PANEL carbon dioxide 28 mmol/ L 22-30 Not Available [facility] (Lab) [address] [place], [address], 09/21/2022 20:32:07 09/21/19 23 09/21/2022 COMPR EHENS EDUAR METAB OLIC PANEL anion gap 14.4 mmol/ L 14-22 Not Available [facility] (Lab) [address] [place], [address], 09/21/2022 20:32:07 09/21/19 23 09/21/2022 COMPR EHENS EDUAR METAB OLIC PANEL glucose 115 mg/dL 70-99 high Not Available [facility] (Lab) [address] [place], [address], 09/21/2022 20:32:07 09/21/19 23 09/21/2022 COMPR EHENS EDUAR METAB OLIC PANEL BUN 17 mg/dL 8-19 Not Available [facility] (Lab) [address] [place], [address], 09/21/2022 20:32:07 09/21/19 23 09/21/2022 COMPR EHENS EDUAR METAB OLIC PANEL creatinine 1.14 mg/dL 0.66-1 .25 Not Available [facility] (Lab) [address] [place], [address], 09/21/2022 20:32:07 09/21/19 23 09/21/2022 COMPR EHENS EDUAR METAB OLIC PANEL GFR >60 Refer ence Range : [place] [facility] GFR Healt hy Adult : >60 [...] or ethni c subgr oups, such as [facility] nics. Outsi de the valid ated [...] s/kdo qi/gf r_cal culat or Not Available [facility] (Lab) [address] [place], [address], 09/21/2022 20:32:07 09/21/19 23 09/21/2022 COMPR EHENS EDUAR METAB OLIC PANEL alkaline phosphatase 58 U/L 38-126 Not Available [facility] (Lab) [address] [place], [address], 09/21/2022 20:32:07 09/21/19 23 09/21/2022 COMPR EHENS EDUAR METAB OLIC PANEL alanine aminotransfe rase 49 U/L 0-50 Not Available [facility] (Lab) [address] [place], [address], 09/21/2022 20:32:07 09/21/19 23 09/21/2022 COMPR EHENS EDUAR METAB OLIC PANEL aspartate aminotransfe rase 35 U/L 15-46 Not Available [facility] (Lab) [address] [place], [address], 09/21/2022 20:32:07 09/21/19 23 09/21/2022 COMPR EHENS EDUAR METAB OLIC PANEL bilirubin, total 1.50 mg/dL 0.20-1 .30 high Not Available [facility] (Lab) [address] [place], [address], 09/21/2022 20:32:07 09/21/19 23 09/21/2022 COMPR EHENS EDUAR METAB OLIC PANEL calcium 9.8 mg/dL 8.4-10 .2 Not Available [facility] (Lab) [address] [place], [address], 09/21/2022 20:32:07 09/21/19 23 09/21/2022 COMPR EHENS EDUAR METAB OLIC PANEL total protein 7.4 g/dL 6.3-8. 2 Not Available [facility] (Lab) [address] [place], [address], 09/21/2022 20:32:07 09/21/19 23 09/21/2022 COMPR EHENS EDUAR METAB OLIC PANEL albumin 4.6 g/dL 3.0-4. 4 high Not Available [facility] (Lab) [address] [place], [address], 09/21/2022 20:32:07 09/21/19 23 09/21/2022 COMPR EHENS EDUAR METAB OLIC PANEL globulin 2.8 g/dL 2.6-4. 2 Not Available [facility] (Lab) [address] [place], [address], 09/21/2022 20:32:07 09/21/19 23 09/21/2022 COMPR EHENS EDUAR METAB OLIC PANEL A/G ratio 1.6 ratio 1.0-2. 0 Not Available [facility] (Lab) [address] [place], [address], 09/21/2022 20:32:07 09/21/19 23 09/21/2022 LIPID PANEL cholesterol 175 mg/dL 140-19 9 NIH REFUGIO NSUS RECOM MENDA TION FOR KATHLEEN STERO L: ADULT CHILD LOW RISK: <200 <170 BORDE RLINE : <200- 239 ----- HIGH RISK: >240 >200 Not Available [facility] (Lab) [address] [place], [address], 09/21/2022 20:31:56 09/21/19 23 09/21/2022 LIPID PANEL triglyceride s 116 mg/dL 0-150 NIH REFUGIO NSUS REPOR T RECOM MENDA TION FOR TRIGL YCERI ANDERS: ADULT CHILD LOW RISK: <150 ----- BODER LINE: 150-1 99 ----- HIGH RISK: >200 ----- Not Available [facility] (Lab) [address] [place], [address], 09/21/2022 20:31:56 09/21/19 23 09/21/2022 LIPID PANEL HDL cholesterol 70 mg/dL 40- Not Available [facility] (Lab) [address] [place], [address], 09/21/2022 20:31:56 09/21/19 23 09/21/2022 LIPID PANEL [...] WILL NOT BE REPOR SHERRY. Not Available [facility] (Lab) [address] [place], [address], 09/21/2022 20:31:56 09/21/19 23 09/21/2022 CBC/C OMPLE TE BLD COUNT W/DIF F white blood cells 7.7 x10'3 /uL 4.2-10 .8 Not Available [facility] (Lab) [address] [place], [address], 09/21/2022 19:14:27 09/21/19 23 09/21/2022 CBC/C OMPLE TE BLD COUNT W/DIF F red blood cells 4.79 x10'6 /uL 4.10-5 .80 Not Available [facility] (Lab) [address] [place], [address], 09/21/2022 19:14:27 09/21/19 23 09/21/2022 CBC/C OMPLE TE BLD COUNT W/DIF F hemoglobin 15.1 g/dL 13.2-1 7.0 Not Available [facility] (Lab) [address] [place], [address], 09/21/2022 19:14:27 09/21/19 23 09/21/2022 CBC/C OMPLE TE BLD COUNT W/DIF F hematocrit 44.3 % 39.3-5 0.0 Not Available [facility] (Lab) [address] [place], [address], 09/21/2022 19:14:27 09/21/19 23 09/21/2022 CBC/C OMPLE TE BLD COUNT W/DIF F mean red cell volume 92.5 fL 80.0-9 7.0 Not Available [facility] (Lab) [address] [place], [address], 09/21/2022 19:14:27 09/21/19 23 09/21/2022 CBC/C OMPLE TE BLD COUNT W/DIF F mean red cell hemoglobin 31.5 pg 27.0-3 3.0 Not Available [facility] (Lab) [address] [place], [address], 09/21/2022 19:14:27 09/21/19 23 09/21/2022 CBC/C OMPLE TE BLD COUNT W/DIF F mean RBC HGB concentratio n 34.1 g/dL 31.0-3 6.0 Not Available [facility] (Lab) [address] [place], [address], 09/21/2022 19:14:27 09/21/19 23 09/21/2022 CBC/C OMPLE TE BLD COUNT W/DIF F red cell distribution width 13.2 % 11.8-1 5.5 Not Available [facility] (Lab) [address] [place], [address], 09/21/2022 19:14:27 09/21/19 23 09/21/2022 CBC/C OMPLE TE BLD COUNT W/DIF F platelets 247 x10'3 /uL 150-40 0 Not Available [facility] (Lab) [address] [place], [address], 09/21/2022 19:14:27 09/21/19 23 09/21/2022 CBC/C OMPLE TE BLD COUNT W/DIF F mean platelet volume 10.2 fL 9.0-12 .4 Not Available [facility] (Lab) [address] [place], [address], 09/21/2022 19:14:27 09/21/1909/21/2022 CBC/C OMPLE TE BLD COUNT W/DIF F neutrophils 44.4 % 39.0-7 2.0 Not Available [facility] (Lab) [address] [place], [address], 09/21/2022 19:14:27 09/21/1909/21/2022 CBC/C OMPLE TE BLD COUNT W/DIF F lymphocytes 36.3 % 16.0-4 7.0 Not Available [facility] (Lab) [address] [place], [address], 09/21/2022 19:14:27 09/21/1909/21/2022 CBC/C OMPLE TE BLD COUNT W/DIF F monocytes 10.4 % 5.0-12 .0 Not Available [facility] (Lab) [address] [place], [address], 09/21/2022 19:14:27 09/21/1909/21/2022 CBC/C OMPLE TE BLD COUNT W/DIF F eosinophils 7.1 % 1.0-7. 0 high Not Available [facility] (Lab) [address] [place], [address], 09/21/2022 19:14:27 09/21/1909/21/2022 CBC/C OMPLE TE BLD COUNT W/DIF F basophils 0.9 % 0.0-2. 0 Not Available [facility] (Lab) [address] [place], [address], 09/21/2022 19:14:27 09/21/1909/21/2022 CBC/C OMPLE TE BLD COUNT W/DIF F immature granulocytes 0.9 % 0.00-0 .50 high Not Available [facility] (Lab) [address] [place], [address], 09/21/2022 19:14:27 09/21/19 23 09/21/2022 CBC/C OMPLE TE BLD COUNT W/DIF F neutrophils, absolute count 3.43 x10'3 /uL 1.5-8. 0 Not Available [facility] (Lab) [address] [place], [address], 09/21/2022 19:14:27 09/21/1909/21/2022 CBC/C OMPLE TE BLD COUNT W/DIF F lymphocytes, absolute count 2.80 x10'3 /uL 1.07-3 .43 Not Available [facility] (Lab) [address] [place], [address], 09/21/2022 19:14:27 09/21/19 23 09/21/2022 CBC/C OMPLE TE BLD COUNT W/DIF F monocytes, absolute count 0.80 x10'3 /uL 0.29-0 .99 Not Available [facility] (Lab) [address] [place], [address], 09/21/2022 19:14:27 09/21/1909/21/2022 CBC/C OMPLE TE BLD COUNT W/DIF F eosinophils, absolute count 0.55 x10'3 /uL 0.02-0 .53 high Not Available [facility] (Lab) [address] [place], [address], 09/21/2022 19:14:27 09/21/1909/21/2022 CBC/C OMPLE TE BLD COUNT W/DIF F basophils, absolute count 0.07 x10'3 /uL 0.01-0 .08 Not Available [facility] (Lab) [address] [place], [address], 09/21/2022 19:14:27 09/21/19 23 09/21/2022 CBC/C OMPLE TE BLD COUNT W/DIF F immature granulocytes ,absolute 0.07 x10'3 /uL 0.00-0 .05 high Not Available [facility] (Lab) [address] [place], [address], 09/21/2022 19:14:27 09/21/19 23 09/21/2022 CBC/C OMPLE TE BLD COUNT W/DIF F nucleated red blood cells 0.0 % -0 Not Available [facility] (Lab) [address] [place], [address], 09/21/2022 19:14:27 09/21/19 23 09/21/2022 CBC/C OMPLE TE BLD COUNT W/DIF F NRBC# 0.00 x10'3 /uL Not Available [facility] (Lab) [address] [place], [address], 09/21/2022 19:14:27 10/09/19 XR, knee No observ ation record ed. [id number] [facility] [place] [address], [place], [address], 11/15/2022 05:21:49 01/05/20 23 01/04/2023 XR, knee No observ ation record ed. [email or web address] [facility] [address], [place], [address], 01/18/2023 14:20:25 01/05/20 23 01/04/2023 XR, knee, 3 view No observ ation record ed. [email or web address] [facility] [address], [place], [address], 01/05/2023 09:00:05 01/19/20 23 01/18/2023 US, duple x, venou s, lower extre mity No observ ation record ed. [email or web address] [facility] [address], [place], [address], 01/18/2023 16:11:43 01/19/20 23 01/18/2023 US, duple x, venou s, lower extre mity No observ ation record ed. [email or web address] [facility] [address], [place], [address], 07/28/2023 15:56:50 02/14/20 XR, knee No observ ation record ed. [email or web address] [facility] [address], [place], [address], 02/13/2023 14:37:01 Result Notes None recorded. Problems Name Problem SNOMED Code Status Onset Date Resolution Date Notes Provider Name and Address Organization Details Recorded Time Body mass index 30+ - obesity 500839740 Active 2021 Not Available [facility] 3 07:05:53 Radiothera py follow-up 967474139 Active Not Available [facility] 3 07:05:53 Localized, primary osteoarthr itis of the pelvic region and thigh 572936733 Active Not Available [facility] 3 07:05:53 Anemia 867861120 Active 2016 Not Available [facility] 3 07:05:53 Osteoarthr itis of left knee joint 6176181619711 09 Active 2021 Not Available [facility] 3 07:05:53 Osteoarthr itis of right knee joint 0196771687619 00 Active 2021 Not Available [facility] 3 07:05:53 Obesity 424707371 Active 2022 Not Available [facility] 3 07:05:53 Pain of right knee joint 7407827370545 00 Active 2022 Not Available [facility] 3 07:05:53 Pain of left knee joint 4379708446582 07 Active 2021 Not Available [facility] 3 07:05:53 Pain of bilateral knee joints 3565054794226 04 Active 2021 Not Available [facility] 3 07:05:53 Hyperlipid emia 09550794 Active 2019 Not Available [facility] 3 07:05:54 Essential hypertensi on 56997916 Active 2016 Not Available [facility] 3 07:05:54 History of total hip arthroplas ty 681734324176 Active 2021 Not Available [facility] 3 07:05:54 Edema of lower extremity 844008148 Active 2022 Not Available [facility] 3 07:05:53 Problem Notes None recorded. Procedures Surgical History Date Name Laterality Status Provider Name and Address Organization Details Recorded Time 12/17/19 23 arthroplasty of right knee completed Silvia Chase RN [place] [facility] [place] [facility] 01/18/2023 11:16:10 02/06/20 19 Total hip arthroplasty completed Not Available [facility] 11/15/2022 05:05:22 01/11/20 17 Colonoscopy completed Not Available [facility] 11/16/19 23 05:05:22 Tonsillectomy completed Not Available [facility] 11/15/2022 05:05:22 repair of meniscus completed Not Available [facility] 11/15/2022 05:05:22 Imaging Results Imaging Date Name Status LastModified by Organiz ation Details LastModified Time 10/09/2022 XR, knee completed [id number] [facility] [place] [address], [place], [address], 11/15/2022 05:21:49 01/04/2023 XR, knee completed [email or web address] [place] [address] [address], [address], 01/18/2023 14:20:25 01/04/2023 XR, knee, 3 view [email or web address] [place] [address] [address], [address], 01/05/2023 09:00:05 01/18/2023 US, duplex, venous, lower extremity completed [email or web address] [place] [address], [place], [address], 01/18/2023 16:11:43 01/18/2023 US, duplex, venous, lower extremity completed [email or web address] [facility] [address], [place], [address], 07/28/2023 15:56:50 02/13/2023 XR, knee completed [email or web address] [facility] [place] [address], [place], [address], 02/13/2023 14:37:01 Procedure Notes None recorded. Medical [...] administ ered by the provider 09/21 completed [facility] [place]NOTE 2]: [id number] 01-04 Not Available Not Available Not [...] Available Not Available Not Available Fluzone High-Dose [id number] (PF) 180 mcg/0.5 mL intramusc ular syringe [...] Updated DateTime 10/09/2022 38 kg/m2 182.88 cm 856470.86 g Not Available [facility] 11/15/2022 05:09:14 Date Recorded Body height Body mass index (BMI) Body weight Provider Name and Address Organization Details Last Updated DateTime 12/21/2022 182.88 cm 38.7 kg/m2 485397.83 g Leida Dc CNA [place] [employer] [facility] 12/21/2022 10:50:53 Date Recorded Body height Body mass index (BMI) Body weight Provider Name and Address Organization Details Last Updated DateTime 01/16/2023 182.88 cm 38.7 kg/m2 232718.83 g JIMENEZ Arredondo [employer] [facility] 01/16/2023 13:56:01 Date Recorded Body height Body mass index (BMI) Body weight Body temperature Heart rate Oxygen saturation Oxygen saturation in Arterial blood by Pulse oximetry Systolic blood pressure Diastolic blood pressure Provider Name and Address Organization Details Last Updated DateTime 182.88 cm 38.5 kg/m2 372657. 23 g 97.6 [degF] 81 /min 97 % 97 % 118 mm[Hg] 80 mm[Hg] Silvia Chase RN [place] [employer] [facility] 11:19:05 Date Recorded Body height Provider Name an d Address Organization Details Last Updated DateTime 02/13/2023 182.88 cm Guerda Love [place] [employer] 02/13/2023 14:08:08 Social History Question Answer Notes LastModified by Organization Details LastModified Time Tobacco Smoking Status Former Smoker quit age 26 Not Available [facility] 11/15/2022 05:02:40 Do You Have An Advance Directive? No Information Provided To Patient MIGRATION.030 [id number] Information not available 11/15/2022 What Is Your Level Of Alcohol Consumption? Moderate 1 Glass Of Wine Per Day MIGRATION.030 [id number] Information not available 11/15/2022 Are You Blind Or Do You Have Difficulty Seeing? No MIGRATION.030 [id number] Information not available 11/15/2022 What Is Your Level Of Caffeine Consumption? Moderate MIGRATION.030 141524 Information not available 11/15/2022 How Much Tobacco Do You Chew? None MIGRATION.030 [id number] Information not available 11/15/2022 In The 14 Days Before Symptom Onset, Have You Had Close Contact With A Laboratory-conf irmed COVID-19 While That Case Was Ill? No MIGRATION.030 [id number] Information not available 11/15/2022 In The 14 Days Before Symptom Onset, Have You Had Close Contact With A Person Who Is Under Investigation For COVID-19 While That Person Was Ill? No MIGRATION.030 637106 Information not available 11/15/2022 Are You Deaf Or Do You Have Serious Difficulty Hearing? No MIGRATION.030 639544 Information not available 11/15/2022 What Type Of Diet Are You Following? REGULAR MIGRATION.030 917425 Information not available 11/15/2022 Which Illicit Or Recreational Drugs Have You Used? None MIGRATION.030 456096 Information not available 11/15/2022 Do You Or Have You Ever Used E-cigarettes Or Vape? Never Used Electronic Cigarettes MIGRATION.030 839321 Information not available 11/15/2022 What Is The Highest Grade Or Level Of School You Have Completed Or The Highest Degree You Have Received? [id number] MIGRATION.030 287669 Information not available 11/15/2022 What Is Your Occupation? [employer]-RETIRED MIGRATION.030 599668 Information not available 11/15/2022 Have There Been Any Changes To Your Family Or Social Situation? Yes MIGRATION.030 671552 Information not available 11/15/2022 What Is The Fluoride Status Of Your Home? Unknown MIGRATION.0301 778588 Information not available 11/15/2022 When Did You Quit Smoking? 16+yearssincelast cigarette MIGRATION.0301 312647 Information not available 11/15/2022 Are There Any Guns Present In Your Home? Yes MIGRATION.0301 066862 Information not available 11/15/2022 Do You Use Insect Repellent Routinely? No MIGRATION.0301 647592 Information not available 11/15/2022 Where Do You Live? [facility] MIGRATION.0301 [id number] Information not available 11/15/2022 Do You Have A Medical Power Of Tariff Counsel? No MIGRATION.0301 090411 Information not available 11/15/2022 What Was The Date Of Your Most Recent Tobacco Screening? 01/18/2023 [email or web address] Information not available 01/18/2023 Have You Ever Been Counseled For Unhealthy Alcohol Use? No MIGRATION.0301 071289 Information not available 11/15/2022 Do You Have Any Pets? Yes MIGRATION.0301 056419 Information not available 11/15/2022 What Is Your Relationship Status? Domestic Partner MIGRATION.0301 096584 Information not available 11/15/2022 Do You Use Your Seat Belt Or Car Seat Routinely? Yes MIGRATION.0301 869744 Information not available 11/15/2022 Do You Have Smoke And Carbon Monoxide Detectors In Your Home? Yes MIGRATION.0301 [id number] Information not available 11/15/2022 Are You Passively Exposed To Smoke? No MIGRATION.0301 676990 Information not available 11/15/2022 Do You Or Have You Ever Used Smokeless Tobacco? Never Used Smokeless Tobacco MIGRATION.0301 339110 Information not available 11/15/2022 Are There Any Smokers In Your House? No MIGRATION.0301 143044 Information not available 11/15/2022 How Much Tobacco Do You Smoke? No MIGRATION.0301 [id number] Information not available 11/15/2022 What Types Of Sporting Activities Do You Participate In? None MIGRATION.0301 780380 Information not available 11/15/2022 Do You Feel Stressed (tense, Restless, Nervous, Or Anxious, Or Unable To Sleep At Night)? [id number] MIGRATION.0301 [id number] Information not available 11/15/2022 Do You Use Any Illicit Or Recreational Drugs? No MIGRATION.0301 480217 Information not available 11/15/2022 Do You Use Sunscreen Routinely? No MIGRATION.0301 673863 Information not available 11/15/2022 Has Tobacco Cessation Counseling Been Provided? No MIGRATION.0301 879854 Information not available 11/15/2022 Have You Recently Traveled Abroad? No MIGRATION.0301 [id number] Information not available 11/15/2022 Do You Have Any Dietary Restrictions? No MIGRATION.0301 025234 Information not available 11/15/2022 Do You Or Have You Ever Used Any Other Forms Of Tobacco Or Nicotine? Yes MIGRATION.0301 701993 Information not available 11/15/2022 Sex: Male Functional Status Question Answer Note LastModified by [employer] ion Details LastModified Time Do you have difficulty walking or climbing stairs? No MIGRATION.646099 [id number] Information not available 11/15/2022 Do you have transportation difficulties? No MIGRATION.907378 5076 Information not available 11/15/2022 Are you able to walk? YESWOREST MIGRATION.972607 2509 Information not available 11/15/2022 Do you have difficulty doing errands alone? No MIGRATION.742779 5954 Information not available 11/15/2022 Are you able to care for yourself? Yes MIGRATION.415389 2733 Information not available 11/15/2022 Do you have difficulty dressing or bathing? No MIGRATION.411842 9129 Information not available 11/15/2022 What is your exercise level? None due to right knee pain MIGRATION.541599 5667 Information not available 11/15/2022 Mental Status Question Answer Note LastModified by Organizat ion Details LastModified Time Do you have difficulty concentrating, remembering or making decisions? No MIGRATION.[id number] 6 Information not available 11/15/2022 Family History Relationship Description Onset Age of this Age Resolved Age Notes LastModified by Organization Details LastModified Time Mother Alzheimer's disease deceas ed MIGRATION.366 [id number] Not available 11/15/2022 05:05:25 Father Heart disease deceas ed MIGRATION.148 [id number] Not available 11/15/2022 05:05:25 Sister Diabetes mellitus MIGRATION.457 [id number] Not available 11/15/2022 05:05:25 Brother Deep venous thrombosis MIGRATION.353 [id number] Not available 11/15/2022 05:05:25 Son Hypertensive disorder MIGRATION.368 [id number] Not available 11/15/2022 05:05:25 Medical History Condition Response BLINDNESS N NERVE DISEASE N RHEUMATIC FEVER N BLADDER PROBLEMS N KIDNEY STONES N MRSA N OTHER # 1 N POLIO N LUNG DISEASE/DISORDER N RADIATION / CHEMOTHERAPY N COPD N Other # 2 N BLOOD DISEASES N EAR OR HEARING PROBLEMS N MUMPS N DEPRESSION (INCLUDING POST ) N BOWEL PROBLEMS N STROKE/TIA N ULCERS N BENIGN PROSTATIC [...] HAVE YOU BEEN HOSPITALIZED OR SEEN IN [facility] IN THE PAST YEAR ? Y [...] mcg/0.3 mL dose 1 completed Not Available [facility] 04/01/2023 07:05:54 Influenza, high-dose, quadrivalent, PF 1 completed Not Available [facility] [facility] 04[facility]01/[facility]23 07:05:54 COVID-19, mRNA, LNP-S, PF, 30 mcg/0.3 mL dose 1 completed Not Available [facility] 04/01/2023 07:05:54 COVID-19, mRNA, LNP-S, PF, 30 mcg/0.3 mL dose 1 completed Not Available [facility] 04/01/2023 07:05:54 Influenza, high-dose, quadrivalent, PF 0 completed Not Available [facility] 04/01/2023 07:05:54 Influenza, split virus, quadrivalent, preservative 9 completed Not Available [facility] 04/01/2023 07:05:54 pneumococcal polysaccharide PPV23 9 completed Not Available [facility] 04/01/2023 07:05:54 Influenza, high-dose, trivalent, PF 8 completed Not Available [facility] 04/01/2023 07:05:54 Pneumococcal conjugate PCV 13 8 completed Not Available [facility] 04/01/2023 07:05:54 Influenza, high-dose, trivalent, PF 7 completed Not Available [facility] 04/01/2023 07:05:54 Tdap 6 completed Not Available [facility] 04/01/2023 07:05:54 influenza, unspecified formulation 2 completed Not Available [facility] 04/01/2023 07:05:54 Past Encounters Encounter ID Performer Location Encounter Start Date Encounter Closed Date Diagnosis/Indication Diagnosis SNOMED-CT Code Diagnosis ICD10 Code Diagnosis Note [id number] [facility] [place] [address] [place] [address] 03/08/2021 00:00:00 03/15/2021 22:19:23 [id number] [facility] [place] [address] [place] [address] 08/30/2021 00:00:00 08/30/2021 21:47:[id number] [facility] [place] [address] [facility] , [place] [address] 02/28/2022 00:00:00 02/28/2022 10:36:25 [id number] [facility] [address] [place] [address] 03/23/2022 00:00:00 03/23/2022 11:06:25 [id number] [facility] [address] [place] [address] 04/20/2022 00:00:00 04/20/2022 11:09:51 [id number] [facility] [address] [place] [address] 04/27/2022 00:00:00 04/27/2022 12:15:28 [id number] [facility] [address] [facility] [address] , [place] [address] 09/21/2022 00:00:00 10/08/2022 21:15:32 [id number] [facility] [address] [place] [address] 10/09/2022 00:00:00 10/09/2022 11:06:14 [id number] Fred Larsen MD [facility] [address] [place] [address] 12/21/2022 10:39:41 12/21/2022 12:28:30 Pain of bilateral knee joints [id number] 44811 M25.561 M25.562 Osteoarthr itis of right knee joint [id number] 54781 M17.11 Osteoarthr itis of left knee joint 8275286077 73087 M17.12 [id number] Fred Larsen MD [facility] [address] [place] [address] 01/16/2023 13:52:39 01/16/2023 15:13:15 Pain of bilateral knee joints 9691251234 02867 M25.561 M25.562 Osteoarthr itis of right knee joint 2223461688 17786 M17.11 Osteoarthr itis of left knee joint 3764931280 74048 M17.12 History of right total knee replacement 6416279400 438548 Z96.[id number] [facility] [address] [facility] [address], [place] [address] 01/18/2023 11:10:06 01/18/2023 12:33:22 Edema of lower extremity [id number] R60.[id number] [facility] [place] [address] [place] [address] 02/13/2023 14:00:13 02/13/2023 14:55:34 Osteoarthritis of right knee joint [id number] 27986 M17.11 History of right total knee replacement 7904593793 365954 Z96.651 Health Concerns Section Related Observation LastModified by Organization Detai ls LastModified Time None Recorded Concern Status LastModified by Organization Details LastModified Time None Recorded Advance Directives Directive N: Information provided to p atient Payers Encounter Date Sequence Insurance Name Policy Number Policy Gilliam Covered Member ID Gilliam Member ID Guarantor Name 12/21/2022 1 FORMERLY [facility] - MEDICARE COMPLETE CHOICE (MEDICARE REPLACEMENT PPO) [id number] [place] [id number] [place] [employer] 01/16/2023 1 FORMERLY [facility] MEDICARE COMPLETE CHOICE (MEDICARE REPLACEMENT PPO) [id number] [place] [id number] [employer] 01/18/2023 1 FORMERLY [facility] - MEDICARE COMPLETE CHOICE (MEDICARE REPLACEMENT PPO) [id number] [employer] [id number] [employer] 02/13/2023 1 FORMERLY [facility] - MEDICARE COMPLETE CHOICE (MEDICARE REPLACEMENT PPO) [id number] [place] [id number] [employer] Notes Date Note Type Note [...] 1st. Fred Larsen MD [address], [place], [address], [id number] 12/21/2022 11:25:26 01/16/2023 text/html Patient returns status post total knee arthroplasty right. His incision looks good he is walking well has very little in the way of pain. Fred Larsen MD [address], [place], [address], [id number] 01/16/2023 14:39:53 01/18/2023 text/html Had knee surgery little bit of swelling maybe a little bit more over the last couple of days without any chest pain or shortness of breath Moose Garcia MD [address], [place], [address], [id number] 01/20/2023 17:46:12 02/13/2023 text/html Patient returns status post total knee arthroplasty right. The pain for the most part is gone he has got excellent motion and walking well. He seems quite happy. Fred Larsen MD [address], [place], [address], [id number] 02/13/2023 14:37:31
== END 2024-12-22 12:29 | disposition home or self-care (01) ==
PROVIDERS: PCP Internal Medicine; Visit Provider Orthopaedic Surgery
DX: M71.22 Synovial cyst of popliteal space [Baker], left knee (principal); M79.89 Other specified soft tissue disorders
CPT/HCPCS: 93971